=== PATIENT | male | born 1955 | race Caucasian/White ===

== ENCOUNTER → 2018-07-22 | Outpatient (CLI) | payer BC, OTHER ==
[2018-07-22 10:29] LABS: BASOPHILS % (AUTO) 1 % (0-10); EOSINOPHILS # (AUTO) 0.2 10^3/uL (0.0-0.3); EOSINOPHILS % (AUTO) 4 % (0-10); HEMATOCRIT 44 % (40-54); HEMOGLOBIN 14.7 G/DL (13.3-17.7); LYMPHOCYTES # (AUTO) 0.5 X 10^3 (1.0-4.0); LYMPHOCYTES % (AUTO) 10 % (12-44); MEAN CORPUSCULAR HEMOGLOBIN 29 PG (25-34); MEAN CORPUSCULAR HGB CONC 33 G/DL (32-36); MEAN CORPUSCULAR VOLUME 86 FL (80-99); MEAN PLATELET VOLUME 9.8 FL (7.4-10.4); MONOCYTES # (AUTO) 0.4 X 10^3 (0.0-1.0); MONOCYTES % (AUTO) 7 % (0-12); NEUTROPHILS # (AUTO) 4.1 X 10^3 (1.8-7.8); NEUTROPHILS % (AUTO) 79 % (42-75); PLATELET COUNT 209 10^3/uL (130-400); RED CELL DISTRIBUTION WIDTH 14.3 % (10.0-14.5); WHITE BLOOD COUNT 5.3 10^3/uL (4.3-11.0)
[2018-07-22 10:53] LABS: ALANINE AMINOTRANSFERASE 15 U/L (0-55); ALBUMIN 4.2 GM/DL (3.2-4.5); ALKALINE PHOSPHATASE 77 U/L (40-136); BILIRUBIN,TOTAL 1.1 MG/DL (0.1-1.0); BUN/CREATININE RATIO 17; CALCIUM 9.2 MG/DL (8.5-10.1); CARBON DIOXIDE 24 MMOL/L (21-32); CHLORIDE 110 MMOL/L (98-107); CHOLESTEROL 153 MG/DL (< 200); CREATININE SERUM 0.88 MG/DL (0.60-1.30); GFR ESTIMATED > 60; GLUCOSE 94 MG/DL (70-105); HDL CHOLESTEROL 33 MG/DL (40-60); POTASSIUM 3.9 MMOL/L (3.6-5.0); SODIUM 146 MMOL/L (135-145); TOTAL PROTEIN 6.1 GM/DL (6.4-8.2); TRIGLYCERIDES 57 MG/DL (<150); VLDL CHOLESTEROL 11 MG/DL (5-40)
== END ==
LOC: LAB 10:06
PROVIDERS: ATTEND Family Medicine
DX: Z00.00 Encounter for general adult medical examination without abnormal findings (principal); Z13.220 Encounter for screening for lipoid disorders
CPT/HCPCS: 36415; 80053; 80061; 85025

== ENCOUNTER 2018-09-18 10:40 | Inpatient (IN) | payer BC ==
[~2018-09-18] VITALS: Ht 172.7 cm; Wt 85.9 kg
--- OUTSIDE RECORDS SUMMARY | 2018-09-18 10:46 | XMS REPORT ---
Author Author DEVAN PRUITT Organization [facility] [place] [facility] Address [address] [place] [address] Care Team Providers Care Lap Regulator Name Role Phone DEVAN PRUITT Unavailable PROBLEMS Unknown Problems ALLERGIES No Information ENCOUNTERS Encounter Location Date Diagnosis [facility] [place] [facility] [address] [id number] Feb, [facility] [place] [employer] [facility] [address] [id number] Jan, [facility] [place] [employer] [facility] [id number] [place] [address] [phone] Jan, Acute diffuse otitis externa of both ears H60.313 ; Otitis externa in other diseases classified elsewhere, unspecified ear H62.40 and Superficial mycosis, unspecified B36.9 [facility] [place] [employer] [facility] [id number] [place] [address] [phone] Dec, Acute diffuse otitis externa of both ears H60.313 and Sinus congestion R09.81 [facility] [place] [employer] [facility] [place] [id number] [place] [address] [id number] Jun, Viral upper respiratory tract infection J06.9 ; Cough R05 and Elevated BP without diagnosis of hypertension R03.0 [facility] [id number] [place] [phone] May, [facility] [id number] [place] [phone] May, [facility] [id number] [place] [phone] May, [facility] [place] [employer] [facility] [id number] [place] [address] [phone] May, Elevated BP without diagnosis of hypertension R03.0 ; Cough R05 and Other fatigue R53.83 [facility] [address] [facility] [id number] [place] [phone] May, Acute non-recurrent frontal sinusitis J01.10 ; Bronchitis J40 and Shortness of breath R06.02 IMMUNIZATIONS No Known Immunizations SOCIAL HISTORY Never Assessed REASON FOR VISIT Blood pressure check PLAN OF CARE VITAL SIGNS Height 65 in 2018-02-09 Blood pressure systolic 166 mmHg 2018-02-09 Blood pressure diastolic 90 mmHg 2018-02-09 MEDICATIONS Unknown Medications RESULTS No Results PROCEDURES No Known procedures INSTRUCTIONS MEDICATIONS ADMINISTERED No Known Medications MEDICAL (GENERAL) HISTORY Type Description Date Surgical History No know Surgical history
--- OUTSIDE RECORDS SUMMARY | 2018-09-18 10:46 | XMS REPORT ---
Author Author DEVAN PRUITT Organization [facility] [place] [facility] Address [address] [place] [address] Care Team Providers Care Hairspring Setter Name Role Phone DEVAN PRUITT Unavailable PROBLEMS Unknown Problems ALLERGIES No Information ENCOUNTERS Encounter Location Date Diagnosis [facility] [place] [facility] [address] [id number] Feb, [facility] [place] [employer] [facility] [address] [id number] Jan, [facility] [place] [facility] [facility] [id number] [place] [address] [phone] Jan, Acute diffuse otitis externa of both ears H60.313 ; Otitis externa in other diseases classified elsewhere, unspecified ear H62.40 and Superficial mycosis, unspecified B36.9 [facility] [place] [employer] [facility] [id number] [place] [address] [phone] Dec, Acute diffuse otitis externa of both ears H60.313 and Sinus congestion R09.81 [facility] [place] [employer] [place] [id number] [place] [address] [phone] Jun, Viral upper respiratory tract infection J06.9 ; Cough R05 and Elevated BP without diagnosis of hypertension R03.0 [facility] [id number] [place] [phone] May, [facility] [id number] [place] [phone] May, [facility] [id number] [place] [phone] May, [facility] [place] [employer] [facility] [id number] [place] [address] [id number] 14 May, 2017 Elevated BP without diagnosis of hypertension R03.0 ; Cough R05 and Other fatigue R53.83 [facility] [address] [facility] [id number] [place] [id number] 07 May, 2017 Acute non-recurrent frontal sinusitis J01.10 ; Bronchitis J40 and Shortness of breath R06.02 IMMUNIZATIONS No Known Immunizations SOCIAL HISTORY Never Assessed REASON FOR VISIT Blood pressure check PLAN OF CARE VITAL SIGNS Height 65 in 2018-02-02 Blood pressure systolic 142 mmHg 2018-02-02 Blood pressure diastolic 78 mmHg 2018-02-02 MEDICATIONS Unknown Medications RESULTS No Results PROCEDURES No Known procedures INSTRUCTIONS MEDICATIONS ADMINISTERED No Known Medications MEDICAL (GENERAL) HISTORY Type Description Date Surgical History No know Surgical history
--- OUTSIDE RECORDS SUMMARY | 2018-09-18 10:46 | XMS REPORT ---
Author Author DEVAN PRUITT Organization [facility] [place] [employer] [facility] Address [address] [place] [address] Care Team Providers Care Community Association Manager Name Role Phone DEVAN PRUITT Unavailable PROBLEMS Unknown Problems ALLERGIES No Information ENCOUNTERS Encounter Location Date Diagnosis [facility] [id number] [phone] Mar, MRSA (methicillin resistant staph aureus) culture positive Z22.322 [facility]ITAL[facility] [address] [id number] [id number] Mar, Skin abscess L02.91 [facility]ITALO[facility] [address] [id number] [place] [phone] Feb, [facility] [address] [id number] [id number] Feb, [facility] [address] [id number] [place]IST[place] [id number] Feb, [facility] [address] [id number] [phone] Jan, [facility] [address] [facility] [id number] [place]ISTA[place] [phone] Jan, Acute diffuse otitis externa of both ears H60.313 ; Otitis externa in other diseases classified elsewhere, unspecified ear H62.40 and Superficial mycosis, unspecified B36.9 [facility] [address] [id number] [place]ISTA[place] [id number] Dec, Acute diffuse otitis externa of both ears H60.313 and Sinus congestion R09.81 [facility] [address] [id number] [place]ISTA[place] [id number] Jun, Viral upper respiratory tract infection J06.9 ; Cough R05 and Elevated BP without diagnosis of hypertension R03.0 [facility] [address]00565100[place] [address] May, [facility] [address]00565100[place] [address] May, [facility] [id number] [place] [phone] May, [facility] [id number] [place] [address] [id number] 14 May, 2017 Elevated BP without diagnosis of hypertension R03.0 ; Cough R05 and Other fatigue R53.83 [facility] [address]00565100[place] [id number] 07 May, 2017 Acute non-recurrent frontal sinusitis J01.10 ; Bronchitis J40 and Shortness of breath R06.02 IMMUNIZATIONS No Known Immunizations SOCIAL HISTORY Never Assessed REASON FOR VISIT medication change PLAN OF CARE VITAL SIGNS MEDICATIONS Medication Instructions Dosage Frequency Start Date End Date Duration Status Sulfamethoxazole-Trimethoprim 800-160 MG Orally Twice a day 1 tablet 12h Mar, 10 day(s) Active RESULTS No Results PROCEDURES No Known procedures INSTRUCTIONS MEDICATIONS ADMINISTERED No Known Medications MEDICAL (GENERAL) HISTORY Type Description Date Surgical History No know Surgical history
--- OUTSIDE RECORDS SUMMARY | 2018-09-18 10:46 | XMS REPORT ---
Author Author DEVAN PRUITT Organization [facility] Address [address] [place] [address] Care Team Providers Care Rn Palliative Care Name Role Phone DEVAN PRUITT Unavailable PROBLEMS Unknown Problems ALLERGIES No Information ENCOUNTERS Encounter Location Date Diagnosis [facility] [place] [facility] [id number] [place] [address] [phone] Feb, [facility] [address] [id number] Feb, [facility] [place] [facility] [id number] [place] [address] [phone] Feb, [facility] [place] [facility] [id number] [place] [address] [phone] Jan, [facility] [employer] [facility] [id number] [place] [address] [id number] Jan, Acute diffuse otitis externa of both ears H60.313 ; Otitis externa in other diseases classified elsewhere, unspecified ear H62.40 and Superficial mycosis, unspecified B36.9 [facility] [place] [facility] [id number] [place] [address] [id number] 05 Dec, 2017 Acute diffuse otitis externa of both ears H60.313 and Sinus congestion R09.81 [facility] [place] [employer] [facility] [id number] [place] [address] [phone] Jun, Viral upper respiratory tract infection J06.9 ; Cough R05 and Elevated BP without diagnosis of hypertension R03.0 [facility] [id number] [place] [phone] May, [facility] [id number] [place] [phone] May, [facility] [address] [facility] [id number] [place] [address] May, [facility] [address] [facility] [id number] [place] [id number] 14 May, 2017 Elevated BP without diagnosis of hypertension R03.0 ; Cough R05 and Other fatigue R53.83 [facility] [address] [facility] [id number] [place] [id number] 07 May, 2017 Acute non-recurrent frontal sinusitis J01.10 ; Bronchitis J40 and Shortness of breath R06.02 IMMUNIZATIONS No Known Immunizations SOCIAL HISTORY Never Assessed REASON FOR VISIT Blood pressure check [employer] PLAN OF CARE VITAL SIGNS Blood pressure systolic 138 mmHg 2018-03-02 Blood pressure diastolic 78 mmHg 2018-03-02 MEDICATIONS Unknown Medications RESULTS No Results PROCEDURES No Known procedures INSTRUCTIONS MEDICATIONS ADMINISTERED No Known Medications MEDICAL (GENERAL) HISTORY Type Description Date Surgical History No know Surgical history
--- OUTSIDE RECORDS SUMMARY | 2018-09-18 10:47 | XMS REPORT ---
Author Author WALT Anand [facility] Address [address] [place] [address] Care Team Providers Care Communications Intern Name Role Phone WALT Anand Unavailable PROBLEMS Unknown Problems ALLERGIES No Known Allergies ENCOUNTERS Encounter Location Date Diagnosis [facility] [address] [id number] Jun, Viral upper respiratory tract infection J06.9 ; Cough R05 and Elevated BP without diagnosis of hypertension R03.0 [facility] [place] [id number] [place] [phone] May, [facility] [place] [address] [phone] May, [facility] [place] [address] [phone] May, [facility] [id number] [place] [address] [id number] 14 May, 2017 Elevated BP without diagnosis of hypertension R03.0 ; Cough R05 and Other fatigue R53.83 [facility] [id number] [place] [address] [id number] 07 May, 2017 Acute non-recurrent frontal sinusitis J01.10 ; Bronchitis J40 and Shortness of breath R06.02 IMMUNIZATIONS No Known Immunizations SOCIAL HISTORY Never Assessed REASON FOR VISIT head and chest congestion-[facility] BODY SHOP MECHANIC/FRUIT AND VEGETABLE CLASSER PLAN OF CARE Activity Details Follow Up prn Reason: VITAL SIGNS Height 65 in 2017-06-09 Weight 185 lbs 2017-06-09 Temperature 98 degrees Fahrenheit 2017-06-09 Heart Rate 90 bpm 2017-06-09 Respiratory Rate 20 2017-06-09 BMI 30.78 kg/m2 2017-06-09 Blood pressure systolic 160 mmHg 2017-06-09 Blood pressure diastolic 90 mmHg 2017-06-09 MEDICATIONS Medication Instructions Dosage Frequency Start Date End Date Duration Status Mucinex 600 MG Orally every 12 hrs 1 tablet as needed 12h Jun, Jun, 14 days Active Dulera 100-5 MCG/ACT Inhalation Twice a day. Rinse mouth after use 2 puffs Jun, August, 30 days Active RESULTS No Results PROCEDURES No Known procedures INSTRUCTIONS MEDICATIONS ADMINISTERED No Known Medications
--- OUTSIDE RECORDS SUMMARY | 2018-09-18 10:47 | XMS REPORT ---
Author Author WALT Anand [facility] Address [address] [place] [address] Care Team Providers Care Woven Wood Shade Assembler Name Role Phone WALT Anand Unavailable PROBLEMS Unknown Problems ALLERGIES No Information ENCOUNTERS Encounter Location Date Diagnosis [facility] [id number] [place] [address] [phone] Jun, Viral upper respiratory tract infection J06.9 ; Cough R05 and Elevated BP without diagnosis of hypertension R03.0 [facility] [id number] [place] [phone] May, [facility] [address] [phone] May, [facility] [id number] [place] [phone] 16 May, 2017 [facility] [id number] [place] [address] [id number] 14 May, 2017 Elevated BP without diagnosis of hypertension R03.0 ; Cough R05 and Other fatigue R53.83 [facility] [id number] [place] [address] [id number] 07 May, 2017 Acute non-recurrent frontal sinusitis J01.10 ; Bronchitis J40 and Shortness of breath R06.02 IMMUNIZATIONS No Known Immunizations SOCIAL HISTORY Never Assessed REASON FOR VISIT B/P check PLAN OF CARE VITAL SIGNS Height 65 in 2017-05-25 Blood pressure systolic 138 mmHg 2017-05-25 Blood pressure diastolic 78 mmHg 2017-05-25 MEDICATIONS No Known Medications RESULTS No Results PROCEDURES No Known procedures INSTRUCTIONS MEDICATIONS ADMINISTERED No Known Medications
--- OUTSIDE RECORDS SUMMARY | 2018-09-18 10:47 | XMS REPORT ---
Author Author DEVAN PRUITT Organization [facility] [employer] Address [address] [place] [address] Care Team Providers Care Sprinkler Tender Name Role Phone DEVAN PRUITT Unavailable PROBLEMS Unknown Problems ALLERGIES No Known Allergies ENCOUNTERS Encounter Location Date Diagnosis [facility] [address] [id number] 05 Dec, 2017 Acute diffuse otitis externa of both ears H60.313 and Sinus congestion R09.81 [facility] [address] [id number] Jun, Viral upper respiratory tract infection J06.9 ; Cough R05 and Elevated BP without diagnosis of hypertension R03.0 [facility] [id number] [place] [phone] May, [facility] [address] [phone] May, [facility] [id number] [place] [phone] 16 May, 2017 [facility] [id number] [place] [address] [id number] 14 May, 2017 Elevated BP without diagnosis of hypertension R03.0 ; Cough R05 and Other fatigue R53.83 [facility] [id number] [place] [address] [id number] 07 May, 2017 Acute non-recurrent frontal sinusitis J01.10 ; Bronchitis J40 and Shortness of breath R06.02 IMMUNIZATIONS No Known Immunizations SOCIAL HISTORY Never Assessed REASON FOR VISIT sinus pressure/ear pain Chris WALTERS PLAN OF CARE Activity Details Follow Up if s/s not improving with PCP or in Clinic Reason: VITAL SIGNS Height 65 in 2017-12-08 Weight 200.2 lbs 2017-12-08 Temperature 97.7 degrees Fahrenheit 2017-12-08 Heart Rate 71 bpm 2017-12-08 Respiratory Rate 20 2017-12-08 BMI 33.31 kg/m2 2017-12-08 Blood pressure systolic 122 mmHg 2017-12-08 Blood pressure diastolic 66 mmHg 2017-12-08 MEDICATIONS Medication Instructions Dosage Frequency Start Date End Date Duration Status Flonase 50 MCG/ACT Nasally Once a day (twice per day for 2 weeks) 1 spray in each nostril Dec, 30 day(s) Active Ciprodex 0.3-0.1 % Otic Twice a day 4 drops into affected ear 12h Dec, 07 days Active RESULTS No Results PROCEDURES No Known procedures INSTRUCTIONS MEDICATIONS ADMINISTERED No Known Medications
--- OUTSIDE RECORDS SUMMARY | 2018-09-18 10:47 | XMS REPORT ---
Author Author WALT Anand [facility] Address [address] [place] [address] Care Team Providers Care Television Repair Teacher Name Role Phone WALT Anand Unavailable PROBLEMS Unknown Problems ALLERGIES No Known Allergies ENCOUNTERS Encounter Location Date Diagnosis [facility] [address] [id number] Jun, Viral upper respiratory tract infection J06.9 ; Cough R05 and Elevated BP without diagnosis of hypertension R03.0 [facility] [id number] [place] [phone] May, [facility] [address] [phone] May, [facility] [id number] [place] [phone] 16 May, 2017 [facility] [id number] [place] [address] [id number] 14 May, 2017 Elevated BP without diagnosis of hypertension R03.0 ; Cough R05 and Other fatigue R53.83 [facility] [id number] [place] [address] [id number] 07 May, 2017 Acute non-recurrent frontal sinusitis J01.10 ; Bronchitis J40 and Shortness of breath R06.02 IMMUNIZATIONS No Known Immunizations SOCIAL HISTORY Never Assessed REASON FOR VISIT sinus/chest congestion-Chris WALTERS PLAN OF CARE Activity Details Follow Up 1 Week or sooner if no improvement Reason: VITAL SIGNS Height 65 in 2017-05-12 Weight 182.6 lbs 2017-05-12 Temperature 100.0 degrees Fahrenheit 2017-05-12 Heart Rate 114 bpm 2017-05-12 Respiratory Rate 18 2017-05-12 Oximetry 90 % 2017-05-12 BMI 30.38 kg/m2 2017-05-12 Blood pressure systolic 150 mmHg 2017-05-12 Blood pressure diastolic 78 mmHg 2017-05-12 MEDICATIONS Medication Instructions Dosage Frequency Start Date End Date Duration Status Benzonatate 200 mg Orally Three times a day prn cough 1 capsule May, 10 days Active PredniSONE 20 mg Orally Once a day with food 3 tablets x 3 days, 2 tablets x 3 days, then 1 tab x 2 days 8 days Active Doxycycline Hyclate 100 mg Orally every 12 hrs 1 tablet 12h May, May, 10 days Active RESULTS No Results PROCEDURES Procedure Date Ordered Result Body Site MEASURE BLOOD OXYGEN LEVEL May 12, 2017 INSTRUCTIONS MEDICATIONS ADMINISTERED No Known Medications
--- OUTSIDE RECORDS SUMMARY | 2018-09-18 10:47 | XMS REPORT ---
Author Author WALT Anand [facility] Address [address] [place] [address] Care Team Providers Care Warehouse Examiner Name Role Phone WALT Anand Unavailable PROBLEMS Unknown Problems ALLERGIES No Information ENCOUNTERS Encounter Location Date Diagnosis [facility] [id number] [place] [address] [phone] Jun, Viral upper respiratory tract infection J06.9 ; Cough R05 and Elevated BP without diagnosis of hypertension R03.0 [facility] [id number] [place] [phone] May, [facility] [address] [phone] May, [facility] [id number] [place] [phone] 16 May, 2017 [facility] [id number] [place] [address] [id number] 14 May, 2017 Elevated BP without diagnosis of hypertension R03.0 ; Cough R05 and Other fatigue R53.83 [facility] [id number] [place] [address] [id number] 07 May, 2017 Acute non-recurrent frontal sinusitis J01.10 ; Bronchitis J40 and Shortness of breath R06.02 IMMUNIZATIONS No Known Immunizations SOCIAL HISTORY Never Assessed REASON FOR VISIT BP check PLAN OF CARE VITAL SIGNS Height 65 in 2017-05-26 Blood pressure systolic 126 mmHg 2017-05-26 Blood pressure diastolic 72 mmHg 2017-05-26 MEDICATIONS No Known Medications RESULTS No Results PROCEDURES No Known procedures INSTRUCTIONS MEDICATIONS ADMINISTERED No Known Medications
--- OUTSIDE RECORDS SUMMARY | 2018-09-18 10:47 | XMS REPORT ---
Author Author DEVAN PRUITT [facility] [place] [facility] Address [address] [place] [address] Care Team Providers Care Stamp Pad Maker Name Role Phone DEVAN PRUITT Unavailable PROBLEMS Unknown Problems ALLERGIES No Known Allergies ENCOUNTERS Encounter Location Date Diagnosis [facility] [address] [id number] Jan, Acute diffuse otitis externa of both ears H60.313 ; Otitis externa in other diseases classified elsewhere, unspecified ear H62.40 and Superficial mycosis, unspecified B36.9 [facility] [id number] [place] [id number] 05 Dec, 2017 Acute diffuse otitis externa of both ears H60.313 and Sinus congestion R09.81 [facility] [id number] [place] [id number] Jun, Viral upper respiratory tract infection J06.9 ; Cough R05 and Elevated BP without diagnosis of hypertension R03.0 [facility] [id number] [place] [phone] May, [facility] [id number] [place] [phone] May, [facility] [id number] [place] [phone] May, [facility] [id number] [place] [id number] 14 May, 2017 Elevated BP without diagnosis of hypertension R03.0 ; Cough R05 and Other fatigue R53.83 [facility] [place] [facility] [id number] [place] [id number] May, Acute non-recurrent frontal sinusitis J01.10 ; Bronchitis J40 and Shortness of breath R06.02 IMMUNIZATIONS No Known Immunizations SOCIAL HISTORY Never Assessed REASON FOR VISIT Ear painx2 days STep[facility]MA PLAN OF CARE Activity Details Follow Up prn if not improving Reason:ear pain VITAL SIGNS Height 65 in 2018-01-26 Weight 193.6 lbs 2018-01-26 Temperature 98.0 degrees Fahrenheit 2018-01-26 Heart Rate 64 bpm 2018-01-26 Respiratory Rate 20 2018-01-26 BMI 32.21 kg/m2 2018-01-26 Blood pressure systolic 134 mmHg 2018-01-26 Blood pressure diastolic 100 mmHg 2018-01-26 MEDICATIONS Medication Instructions Dosage Frequency Start Date End Date Duration Status Flonase 50 MCG/ACT Nasally Once a day (twice per day for 2 weeks) 1 spray in each nostril Dec, 30 day(s) Active Acetic Acid-HC Drops 2-1 % Otic Three times a day 3 drops into affected ear 8h Jan, 10 day(s) Active Clotrimazole 1 % Externally Twice a day 1 application to each ear 12h Jan, Feb, 10 days Active RESULTS No Results PROCEDURES No Known procedures INSTRUCTIONS MEDICATIONS ADMINISTERED No Known Medications MEDICAL (GENERAL) HISTORY Type Description Date Surgical History No know Surgical history
--- OUTSIDE RECORDS SUMMARY | 2018-09-18 10:47 | XMS REPORT ---
Author Author WALT Anand [facility] Address [address] [place] [address] Care Team Providers Care Maker Up Folding Name Role Phone WALT Anand Unavailable PROBLEMS Unknown Problems ALLERGIES No Information ENCOUNTERS Encounter Location Date Diagnosis [facility] [id number] [place] [id number] Jun, Viral upper respiratory tract infection J06.9 ; Cough R05 and Elevated BP without diagnosis of hypertension R03.0 [facility] [id number] [place] [phone] May, [facility] [address] [phone] May, [facility] [id number] [place] [phone] May, [facility] [id number] [place] [id number] 14 May, 2017 Elevated BP without diagnosis of hypertension R03.0 ; Cough R05 and Other fatigue R53.83 [facility] [id number] [place] [id number] 07 May, 2017 Acute non-recurrent frontal sinusitis J01.10 ; Bronchitis J40 and Shortness of breath R06.02 IMMUNIZATIONS No Known Immunizations SOCIAL HISTORY Never Assessed REASON FOR VISIT B/P check PLAN OF CARE VITAL SIGNS Height 65 in 2017-05-21 Blood pressure systolic 146 mmHg 2017-05-21 Blood pressure diastolic 76 mmHg 2017-05-21 MEDICATIONS No Known Medications RESULTS No Results PROCEDURES No Known procedures INSTRUCTIONS MEDICATIONS ADMINISTERED No Known Medications
[2018-09-18] MEDS ORDERED: RT-ALBUTEROL/IPRATROPIUM 3 ML (DUONEB) VIAL INH ONE (11:00)
[2018-09-18 11:08] LABS: BASOPHILS % (AUTO) 0 % (0-10); EOSINOPHILS # (AUTO) 0.1 10^3/uL (0.0-0.3); EOSINOPHILS % (AUTO) 1 % (0-10); HEMATOCRIT 46 % (40-54); HEMOGLOBIN 15.1 G/DL (13.3-17.7); LYMPHOCYTES # (AUTO) 0.5 X 10^3 (1.0-4.0); LYMPHOCYTES % (AUTO) 4 % (12-44); MEAN CORPUSCULAR HEMOGLOBIN 28 PG (25-34); MEAN CORPUSCULAR HGB CONC 33 G/DL (32-36); MEAN CORPUSCULAR VOLUME 85 FL (80-99); MEAN PLATELET VOLUME 10.2 FL (7.4-10.4); MONOCYTES # (AUTO) 0.3 X 10^3 (0.0-1.0); MONOCYTES % (AUTO) 3 % (0-12); NEUTROPHILS # (AUTO) 10.9 X 10^3 (1.8-7.8); NEUTROPHILS % (AUTO) 92 % (42-75); PLATELET COUNT 249 10^3/uL (130-400); RED CELL DISTRIBUTION WIDTH 14.6 % (10.0-14.5); WHITE BLOOD COUNT 11.8 10^3/uL (4.3-11.0)
--- NOTE | 2018-09-18 11:11 | ED Chest Pain ---
General Stated Complaint: DX WITH BRONCHITIS/CHEST TIGHTNESS Source: patient Exam Limitations: no limitations History of Present Illness Date Seen by Provider: Sep 18, 2018 Time Seen by Provider: 11:07 Initial Comments This 63-year-old white male presents with a complaint of chest tightness. The patient has had a recent bronchitis in the past week for which she is taking them steroids and inhalers. The patient denies history of cardiac disease. He's had a long-standing history of asthmatic bronchitis. The patient's chest tightness is not exertional in nature. The patient's bronchitis has been improving in the past week with the inhalers and steroids. The patient denies associated fever, chills, productive cough, pressure type chest pain or exertional chest pain. Patient is worried that he may be having a heart attack. Allergies and Home Medications Allergies Coded Allergies: No Known Drug Allergies (Unverified , 09/18/18) Patient Home Medication List Home Medication List Reviewed: Yes Review of Systems Review of Systems Constitutional: No chills, No fever, No malaise EENTM: No Blurred Vision, No Ear Pain Respiratory: See HPI, Cough, Shortness of Air (improving) Cardiovascular: See HPI, Chest Pain Gastrointestinal: See HPI Genitourinary: Denies Drainage, Denies Frequency Musculoskeletal: No back pain Skin: No change in color, No rash Psychiatric/Neurological: No Symptoms Reported Endocrine: No Symptoms Reported Hematologic/Lymphatic: No Symptoms Reported Past Uerajwy-Uaelzc-Zduwnw Hx Past Med/Social Hx: Reviewed Nursing Past Med/Soc Hx Patient Social History Recent Foreign Travel: No Contact w/Someone Who Travel: No Physical Exam Vital Signs Vital Signs - First Documented 09/18/18 10:50 Temp 96.8 Pulse 101 Resp 20 B/P (MAP) 147/101 (116) Pulse Ox 96 O2 Delivery Room Air Capillary Refill : Height, Weight, BMI Height: '" Weight: lbs. oz. kg; BMI Method: General Appearance: No Apparent Distress, WD/WN HEENT: TMs Normal, Normal ENT Inspection Neck: Normal Inspection, Non Tender Respiratory: Lungs Clear Cardiovascular: Regular Rate, Rhythm, No Murmur Gastrointestinal: Normal Bowel Sounds Extremity: Normal Capillary Refill, Normal Inspection, Normal Range of Motion, Non Tender Neurologic/Psychiatric: Oriented x3, No Motor/Sensory Deficits Skin: Normal Color, Warm/Dry Progress/Results/Core Measures Results/Orders Lab Results Laboratory Tests Test 09/18/18 11:00 Range/Units White Blood Count 11.8 H 4.3-11.0 10^3/uL Red Blood Count 5.35 4.35-5.85 10^6/uL Hemoglobin 15.1 13.3-17.7 G/DL Hematocrit 46 40-54 % Mean Corpuscular Volume 85 80-99 FL Mean Corpuscular Hemoglobin 28 25-34 PG Mean Corpuscular Hemoglobin Concent 33 32-36 G/DL Red Cell Distribution Width 14.6 H 10.0-14.5 % Platelet Count 249 130-400 10^3/uL Mean Platelet Volume 10.2 7.4-10.4 FL Neutrophils (%) (Auto) 92 H 42-75 % Lymphocytes (%) (Auto) 4 L 12-44 % Monocytes (%) (Auto) 3 0-12 % Eosinophils (%) (Auto) 1 0-10 % Basophils (%) (Auto) 0 0-10 % Neutrophils # (Auto) 10.9 H 1.8-7.8 X 10^3 Lymphocytes # (Auto) 0.5 L 1.0-4.0 X 10^3 Monocytes # (Auto) 0.3 0.0-1.0 X 10^3 Eosinophils # (Auto) 0.1 0.0-0.3 10^3/uL Basophils # (Auto) 0.0 0.0-0.1 10^3/uL Neutrophils % (Manual) 94 % Lymphocytes % (Manual) 4 % Monocytes % (Manual) 1 % Eosinophils % (Manual) 1 % Blood Morphology Comment NORMAL Sodium Level 142 135-145 MMOL/L Potassium Level 4.3 3.6-5.0 MMOL/L Chloride Level 108 H 98-107 MMOL/L Carbon Dioxide Level 22 21-32 MMOL/L Anion Gap 12 5-14 MMOL/L Blood Urea Nitrogen 19 H 7-18 MG/DL Creatinine 0.94 0.60-1.30 MG/DL Estimat Glomerular Filtration Rate > 60 BUN/Creatinine Ratio 20 Glucose Level 101 70-105 MG/DL Calcium Level 9.4 8.5-10.1 MG/DL Corrected Calcium 9.1 8.5-10.1 MG/DL Total Bilirubin 0.6 0.1-1.0 MG/DL Aspartate Amino Transf (AST/SGOT) 32 5-34 U/L Alanine Aminotransferase (ALT/SGPT) 31 0-55 U/L Alkaline Phosphatase 80 40-136 U/L Troponin I 0.057 H <0.028 NG/ML Total Protein 6.6 6.4-8.2 GM/DL Albumin 4.4 3.2-4.5 GM/DL My Orders Orders - CORTEZ BERNARD MD Ekg Tracing (09/18/18 10:52) Troponin I (09/18/18 10:52) Chest Pa/Lat (2 View) (09/18/18 10:52) Albuterol/Ipra Inhalation Soln (Duoneb I (09/18/18 11:00) Svn Small Volume Nebulizer (09/18/18 10:57) Cbc With Automated Diff (09/18/18 10:58) Comprehensive Metabolic Panel (09/18/18 10:58) Manual Differential (09/18/18 11:00) Protime With Inr (09/18/18 12:23) Medications Given in ED Current Medications Medications Dose Ordered Sig/Vasyl Route Start Time Stop Time Status Last Admin Dose Admin Albuterol/ Ipratropium 3 ml ONCE ONCE INH 09/18/18 11:00 09/18/18 11:01 DC 09/18/18 11:38 3 ML Vital Signs/I&O 09/18/18 09/18/18 10:50 11:38 Temp 96.8 Pulse 101 Resp 20 B/P (MAP) 147/101 (116) Pulse Ox 96 96 O2 Delivery Room Air Room Air Progress Progress Note : Time: 12:27 Progress Note Patient's EKG demonstrated left bundle branch block. Patient's troponin was minimally elevated. The patient remained pain-free in the emergency department. I called and visited with Dr. Jaime who recommended the patient be admitted for further evaluation. Dr. Moreno was kind enough to admit the patient. Departure Communication (Admissions) Time/Spoke to Admitting Phy: 12:29 Dr. Moreno. Time/Spoke to Consulting Phy: 12:29 Dr. Jaime. Impression Primary Impression: Chest pain Qualified Codes: R07.9 - Chest pain, unspecified Additional Impression: Elevated troponin Disposition: ADMITTED INPATIENT Condition: Improved Admissions Decision to Admit Reason: Admit from ER (General) Decision to Admit/Date: Sep 18, 2018 Time/Decision to Admit Time: 12:30 Departure-Patient Inst. Referrals: ABBY ISAAC MD (PCP/Family) Primary Care Physician CORTEZ BERNARD MD Sep 18, 2018 11:11
[2018-09-18 11:24] LABS: EOSINOPHILS % (MANUAL) 1 %; LYMPHOCYTES % (MANUAL) 4 %; MONOCYTES % (MANUAL) 1 %; NEUTROPHILS % (MANUAL) 94 %; RBC MORPH NORMAL
[2018-09-18 11:29] LABS: ALANINE AMINOTRANSFERASE 31 U/L (0-55); ALBUMIN 4.4 GM/DL (3.2-4.5); ALKALINE PHOSPHATASE 80 U/L (40-136); BILIRUBIN,TOTAL 0.6 MG/DL (0.1-1.0); BUN/CREATININE RATIO 20; CALCIUM 9.4 MG/DL (8.5-10.1); CARBON DIOXIDE 22 MMOL/L (21-32); CHLORIDE 108 MMOL/L (98-107); CREATININE SERUM 0.94 MG/DL (0.60-1.30); GFR ESTIMATED > 60; GLUCOSE 101 MG/DL (70-105); POTASSIUM 4.3 MMOL/L (3.6-5.0); SODIUM 142 MMOL/L (135-145); TOTAL PROTEIN 6.6 GM/DL (6.4-8.2)
--- NOTE | 2018-09-18 11:44 | Diagnostic Imaging Report ---
INDICATION: Shortness of air, chest pain FINDINGS: The heart size upper limits. There is vascular congestion. There is Larry Bs and probable pulmonary edema with small amounts of pleural fluid at the posterior sulci seen on the lateral radiograph. IMPRESSION: Findings suggest pulmonary edema with small pleural effusions. Upper limits heart size. No pneumothorax. Dictated by: Dictated on workstation # [id number]
[2018-09-18 12:34] LABS: PROTHROMBIN TIME PATIENT 13.1 SEC (12.2-14.7)
[2018-09-18 14:45] VITALS: BP 153/103
[2018-09-18] MEDS ORDERED: IBUPROFEN TABLET 200 MG TAB PO PRN (15:00)
[2018-09-18] MEDS ORDERED: fentaNYL INJECTION 100 MCG/2 ML AMP IVP PRN (15:00)
[2018-09-18] MEDS ORDERED: DOCUSATE SODIUM 100 MG (COLACE) CAP PO PRN (15:00)
[2018-09-18] MEDS ORDERED: HYDROcodone/APAP 5 MG/325 MG (LORTAB) TAB PO PRN (15:00)
[2018-09-18] MEDS ORDERED: ACETAMINOPHEN 500 MG TAB (TYLENOL) PO PRN (15:00)
[2018-09-18] MEDS ORDERED: ONDANSETRON 4 MG/2 ML (SDV) Z0FRAN IVP PRN (15:00)
[2018-09-18] MEDS ORDERED: CALCIUM CARBONATE 500 MG (TUMS) TAB.CHEW PO PRN (15:00)
[2018-09-18] MEDS ORDERED: MELATONIN 3 MG TABLET PO PRN (15:00)
[2018-09-18] MEDS ORDERED: LOPERAMIDE 2 MG (IMODIUM) TABLET PO PRN (15:00)
[2018-09-18] MEDS ORDERED: diphenhydrAMINE 25 MG TAB (BENADRYL) PO PRN (15:00)
[2018-09-18] MEDS ORDERED: NITROGLYCERIN 0.4 MG SL TABS BTL 25'S SL PRN (15:15)
--- NOTE | 2018-09-18 15:17 | Consultation-Cardiology ---
HPI-Cardiology Cardiology Consultation: Date of Consultation 09/18/18 Time Seen by a Provider: 14:50 Date of Admission 09/18/18 Attending Physician Adriana Moreno DO Admitting Physician Franco Benitez MD Consulting Physician BETTY HARPER MD, MA, FACP, FACC, [facility], CCDS Physician requesting consult: Dr Moreno HPI: Chief Complaint: Reason for consultation: Chest discomfort, shortness of breath, elevated troponin HPI: 63 yo man with one week of shortness of breath, mostly exertional. Also cough productive of small quantities of whitish sputum. Saw Dr Tianna Benitez, his pcp, on 09/16/18, and was placed on tapering prednisone and Symbicort inhaler. This resulted in some improvement of symptoms, but symptoms did not resolve and he decided to come in the ER. Also notes chest discomfort: onset a week ago, feeling of fullness in all of the chest, mild, sometimes brought with exertion and improved with rest, sometimes nonexertional, generally lasting 5 min, non-radiating, sometimes associated with shortness of breath, occurring several times a day, essentially unchanged over the last several days. No symptoms at the time of this exam. Review of Systems-Cardiology Review of Systems Constitutional: malaise; No weight loss, No weight gain Eyes: No vision change Ears/Nose/Throat: No ear discharge, No nasal drainage, No recent hearing loss Respiratory: As described under HPI Cardiovascular: As described under HPI Gastrointestinal: No diarrhea, No nausea, No vomiting Genitourinary: No dysuria, No hematuria, No urine frequency changes Musculoskeletal: No back pain, No joint pain Skin: No rash, No ulcerations Psychiatric/Neurological: No seizure, No focal weakness, No syncope Hematologic: No bleeding abnormalities DYD-Ygfgcb-Mzsiwe Hx Patient Social History Alcohol Use: Denies Use Recreational Drug Use: No Smoking Status: Former Smoker Recent Foreign Travel: No Recent Infectious Disease Expo: No Hospitalization with Isolation: Denies Immunizations Up To Date Tetanus Booster (TDap): Unknown Past Medical History PMH As described under Assessment. Family Medical History Family History: Alzheimer's disease 19 FATHER, Onset:Unknown Arthritis 19 FATHER, Onset:Unknown 19 MOTHER, Onset:Unknown G8 BROTHER, Onset:Unknown Asthma 19 FATHER, Onset:Unknown Cardiovascular disease 19 FATHER, Onset:60 years & older Cataracts 19 FATHER 19 MOTHER Deafness or hearing loss 19 FATHER Dementia 19 FATHER 19 MOTHER Diabetes mellitus Kidney disease 19 FATHER, Onset:60 years & older Myocardial infarction 19 FATHER, Onset:60 years & older Allergies and Home Medications Allergies Coded Allergies: No Known Drug Allergies (Unverified , 09/18/18) Patient Home Medication List Home Medication List Reviewed: Yes Physical Exam-Cardiology Physical Exam Vital Signs/I&O 09/18/18 09/18/18 09/18/18 09/18/18 10:50 11:38 12:43 13:09 Temp 96.8 Pulse 101 91 92 Resp 20 17 B/P (MAP) 147/101 (116) 151/98 (115) Pulse Ox 96 96 98 O2 Delivery Room Air Room Air Room Air 09/18/18 14:45 Pulse 90 Resp 13 B/P (MAP) 153/103 (120) Pulse Ox 95 O2 Delivery Room Air Capillary Refill : Less Than 3 Seconds Constitutional: AAO x 3, well-developed, well-nourished HEENT: EOMI, hearing is well preserved; No xanthelasmas are seen Neck: carotid pulses are 2 + bilaterally, with good upstrokes Respiratory: No accessory muscle use; lungs clear to percussion, other (good bi lat air entry) Cardiovascular: regular rate-rhythm, S1 and S2, systolic murmur (2/6 RAMANDEEP at card base) Gastrointestinal: No tender; soft; No guarding, No rebound; audible bowel sounds Extremities: No clubbing, No cyanosis, No significant edema Neurologic/Psychiatric: oriented x 3, grossly intact, power is 5/5 both on sides Skin: No rash on exposed areas, No ulcerations on exposed areas Data Review Labs Laboratory Tests 09/18/18 11:00: White Blood Count 11.8H, Red Blood Count 5.35, Hemoglobin 15.1, Hematocrit 46, Mean Corpuscular Volume 85, Mean Corpuscular Hemoglobin 28, Mean Corpuscular Hemoglobin Concent 33, Red Cell Distribution Width 14.6H, Platelet Count 249, Mean Platelet Volume 10.2, Neutrophils (%) (Auto) 92H, Lymphocytes (%) (Auto) 4L , Monocytes (%) (Auto) 3, Eosinophils (%) (Auto) 1, Basophils (%) (Auto) 0, Neutrophils # (Auto) 10.9H, Lymphocytes # (Auto) 0.5L, Monocytes # (Auto) 0.3, Eosinophils # (Auto) 0.1, Basophils # (Auto) 0.0, Neutrophils % (Manual) 94, Lymphocytes % (Manual) 4, Monocytes % (Manual) 1, Eosinophils % (Manual) 1, Blood Morphology Comment NORMAL, Prothrombin Time 13.1, INR Comment 1.0, Sodium Level 142, Potassium Level 4.3, Chloride Level 108H, Carbon Dioxide Level 22, A nion Gap 12, Blood Urea Nitrogen 19H, Creatinine 0.94, Estimat Glomerular Filtr ation Rate > 60, BUN/Creatinine Ratio 20, Glucose Level 101, Calcium Level 9.4, Corrected Calcium 9.1, Total Bilirubin 0.6, Aspartate Amino Transf (AST/SGOT) 32, Alanine Aminotransferase (ALT/SGPT) 31, Alkaline Phosphatase 80, Troponin I 0.057H, Total Protein 6.6, Albumin 4.4 Laboratory Tests 09/18/18 11:00 A/P-Cardiology Assessment/Admission Diagnosis Intermittent chest discomfort and minimal troponin elevation: consider ACS Abnormal ECG: LBBB (probably chronic) H/o tobacco use (quit in the ) Hypertension Frequent, isolated PACs and PVCs Discussion and Recomendations * Treat with beta-kayleigh, ASA, clopidogrel * Echo * Would need coronary w/u. Would decide on cath vs MPI based on his hosp course * Keep tele Clinical Quality Measures DVT/VTE Risk/Contraindication: Risk Factor Score Per Nursin RFS Level Per Nursing on Admit: 2=Moderate BETTY HARPER MD FACP FAC CCDS Sep 18, 2018 15:17
[2018-09-18] MEDS ORDERED: meTOprolol SUCCINATE 100 MG (TOPROL XL) TAB PO ONE (15:30)
[2018-09-18] MEDS ORDERED: PANTOPRAZOLE 40 MG (PROTONIX) TAB PO ONE (15:30)
[2018-09-18 16:00] VITALS: BP 140/79
[2018-09-18] MEDS ORDERED: CLOPIDOGREL 75 MG (PLAVIX) TABLET PO NR (16:16)
[2018-09-18] MEDS: RT-ALBUTEROL/IPRATROPIUM 3 ML (DUONEB) VIAL INH SCH ×2 (16:40→20:00)
[2018-09-18 19:00] VITALS: BP 137/77
[2018-09-18 20:00] VITALS: BP 151/66
[2018-09-18] MEDS: SENNA W/DOCUSATE (SENOKOT S) TABLET PO SCH (21:11)
[2018-09-19] VITALS: BP 95/64
[2018-09-19] MEDS: RT-ALBUTEROL/IPRATROPIUM 3 ML (DUONEB) VIAL INH SCH ×4 (03:12→20:14)
[2018-09-19 04:59] VITALS: BP 93/63
[2018-09-19] MEDS ORDERED: predniSONE 20 MG TAB PO SCH (07:00)
[2018-09-19 07:57] LABS: BASOPHILS % (AUTO) 0 % (0-10); EOSINOPHILS # (AUTO) 0.1 10^3/uL (0.0-0.3); EOSINOPHILS % (AUTO) 1 % (0-10); HEMATOCRIT 40 % (40-54); HEMOGLOBIN 13.3 G/DL (13.3-17.7); LYMPHOCYTES # (AUTO) 0.9 X 10^3 (1.0-4.0); LYMPHOCYTES % (AUTO) 11 % (12-44); MEAN CORPUSCULAR HEMOGLOBIN 29 PG (25-34); MEAN CORPUSCULAR HGB CONC 33 G/DL (32-36); MEAN CORPUSCULAR VOLUME 87 FL (80-99); MEAN PLATELET VOLUME 10.3 FL (7.4-10.4); MONOCYTES # (AUTO) 0.5 X 10^3 (0.0-1.0); MONOCYTES % (AUTO) 7 % (0-12); NEUTROPHILS # (AUTO) 6.7 X 10^3 (1.8-7.8); NEUTROPHILS % (AUTO) 82 % (42-75); PLATELET COUNT 214 10^3/uL (130-400); RED CELL DISTRIBUTION WIDTH 14.5 % (10.0-14.5); WHITE BLOOD COUNT 8.2 10^3/uL (4.3-11.0)
[2018-09-19 08:00] VITALS: BP 119/76
[2018-09-19 08:11] LABS: BAND NEUTROPHILS 0 %; BASOPHILS % (MANUAL) 0 %; EOSINOPHILS % (MANUAL) 2 %; LYMPHOCYTES % (MANUAL) 7 %; MONOCYTES % (MANUAL) 8 %; NEUTROPHILS % (MANUAL) 83 %
[2018-09-19 08:12] LABS: RBC MORPH NORMAL
[2018-09-19 08:15] LABS: ALANINE AMINOTRANSFERASE 24 U/L (0-55); ALBUMIN 3.6 GM/DL (3.2-4.5); ALKALINE PHOSPHATASE 65 U/L (40-136); BILIRUBIN,TOTAL 0.6 MG/DL (0.1-1.0); BUN/CREATININE RATIO 17; CALCIUM 8.4 MG/DL (8.5-10.1); CARBON DIOXIDE 23 MMOL/L (21-32); CHLORIDE 111 MMOL/L (98-107); CHOLESTEROL 131 MG/DL (< 200); GFR ESTIMATED > 60; GLUCOSE 87 MG/DL (70-105); HDL CHOLESTEROL 30 MG/DL (40-60); POTASSIUM 3.5 MMOL/L (3.6-5.0); SODIUM 145 MMOL/L (135-145); TOTAL PROTEIN 5.2 GM/DL (6.4-8.2); TRIGLYCERIDES 92 MG/DL (<150); VLDL CHOLESTEROL 18 MG/DL (5-40)
[2018-09-19] MEDS: CLOPIDOGREL 75 MG (PLAVIX) TABLET PO SCH (08:54)
[2018-09-19] MEDS: PANTOPRAZOLE 40 MG (PROTONIX) TAB PO SCH (08:54)
[2018-09-19] MEDS: ASPIRIN E.C. 81 MG (ECOTRIN) TAB PO SCH (08:54)
[2018-09-19] MEDS: SENNA W/DOCUSATE (SENOKOT S) TABLET PO SCH ×2 (08:55→20:25)
--- NOTE | 2018-09-19 09:17 | Progress Note-Cardiology ---
Cardiology SOAP Progress Note Subjective: No further chest discomfort No shortness of breath at rest Denies palp or syncope Objective: I&O/Vital Signs 09/19/18 09/19/18 09/19/18 09/19/18 00:00 00:00 01:00 03:12 Temp 98.1 Pulse 64 63 Resp 19 B/P (MAP) 95/64 (74) Pulse Ox 94 94 95 O2 Delivery Room Air Room Air Room Air 09/19/18 09/19/18 04:00 04:59 Pulse 76 Resp 18 B/P (MAP) 93/63 (73) Pulse Ox 95 91 O2 Delivery Room Air Room Air 09/19/18 00:00 Intake Total 650 ml Balance 650 ml Weight (Pounds): 188 Weight (Ounces): 8.0 Weight (Calculated Kilograms): 85.369606 Constitutional: AAO x 3, well-developed, well-nourished Respiratory: No accessory muscle use; lungs clear to percussion, other (good bilat air entry) Cardiovascular: regular rate-rhythm, S1 and S2, systolic murmur (2/6 RAMANDEEP at card base) Gastrointestional: No tender; soft; No guarding, No rebound; audible bowel sounds Extremities: No clubbing, No cyanosis, No significant edema Neurologic/Psychiatric: oriented x 3, grossly intact, power is 5/5 both on sides Skin: No rash on exposed areas, No ulcerations on exposed areas Results/Procedures: Labs Laboratory Tests 09/18/18 11:00: White Blood Count 11.8H, Red Blood Count 5.35, Hemoglobin 15.1, Hematocrit 46, Mean Corpuscular Volume 85, Mean Corpuscular Hemoglobin 28, Mean Corpuscular Hem oglobin Concent 33, Red Cell Distribution Width 14.6H, Platelet Count 249, Mean Platelet Volume 10.2, Neutrophils (%) (Auto) 92H, Lymphocytes (%) (Auto) 4L, Monocytes (%) (Auto) 3, Eosinophils (%) (Auto) 1, Basophils (%) (Auto) 0, Neutrophils # (Auto) 10.9H, Lymphocytes # (Auto) 0.5L, Monocytes # (Auto) 0.3, Eosinophils # (Auto) 0.1, Basophils # (Auto) 0.0, Neutrophils % (Manual) 94, Lymphocytes % (Manual) 4, Monocytes % (Manual) 1, Eosinophils % (Manual) 1, Blood Morphology Comment NORMAL, Prothrombin Time 13.1, INR Comment 1.0, Sodium Level 142, Potassium Level 4.3, Chloride Level 108H, Carbon Dioxide Level 22, Anion Gap 12, Blood Urea Nitrogen 19H, Creatinine 0.94, Estimat Glomerular Filtration Rate > 60, BUN/Creatinine Ratio 20, Glucose Level 101, Calcium Level 9.4, Corrected Calcium 9.1, Total Bilirubin 0.6, Aspartate Amino Transf (AST/ SGOT) 32, Alanine Aminotransferase (ALT/SGPT) 31, Alkaline Phosphatase 80, Troponin I 0.057H, Total Protein 6.6, Albumin 4.4 09/19/18 07:44: White Blood Count 8.2, Red Blood Count 4.66, Hemoglobin 13.3, Hematocrit 40, Mean Corpuscular Volume 87, Mean Corpuscular Hemoglobin 29, Mean Corpuscular Hemoglobin Concent 33, Red Cell Distribution Width 14.5, Platelet Count 214, Mean Platelet Volume 10.3, Neutrophils (%) (Auto) 82H, Lymphocytes (%) (Auto) 11L, Monocytes (%) (Auto) 7, Eosinophils (%) (Auto) 1, Basophils (%) (Auto) 0, Neutrophils # (Auto) 6.7, Lymphocytes # (Auto) 0.9L, Monocytes # (Auto) 0.5, Eosinophils # (Auto) 0.1, Basophils # (Auto) 0.0, Neutrophils % (Manual) 83, Lymphocytes % (Manual) 7, Monocytes % (Manual) 8, Eosinophils % (Manual) 2, Blood Morphology Comment NORMAL, Sodium Level 145, Potassium Level 3.5L, Chloride Level 111H, Carbon Dioxide Level 23, Anion Gap 11, Blood Urea Nitrogen 17, Creatinine 1.00, Estimat Glomerular Filtration Rate > 60, BUN/Creatinine Ratio 17, Glucose Level 87, Calcium Level 8.4L, Corrected Calcium 8.7, Total Bilirubin 0.6, Aspartate Amino Transf (AST/SGOT) 16, Alanine Aminotransferase (ALT/SGPT) 24, Alkaline Phosphatase 65, Troponin I 0.051H, Total Protein 5.2L, Albumin 3.6, Basophils % (Manual) 0, Band Neutrophils 0, Triglycerides Level 92, Cholesterol Level 131, LDL Cholesterol Direct 94, VLDL Cholesterol 18, HDL Cholesterol 30L Laboratory Tests 09/18/18 11:00 09/19/18 07:44 A/P: Assessment: Intermittent chest discomfort and minimal troponin elevation: consider ACS Dilated cardiomyopathy: LVEF approx 40% with global hypo (somewhat more at apex), mod MR on echo of 09/19/18 Abnormal ECG: LBBB (probably chronic) H/o tobacco use (quit in the ) Hypertension Frequent, isolated PACs and PVCs Plan: * Treat with beta-kayleigh, ASA, clopidogrel * Add MAGALYS-inhib * Given newly diagnosed cardiomyopathy and symptoms, we recommend card cath. I discussed the rationale, procedure, risks, benefits, potential complications and alternatives of card cath and possible ad hoc cor intervention with him in detail. He understands and provides informed consent. Will proceed tomorrow (or earlier, if needed) * Keep tele BETTY HARPER MD FACP FAC CCDS Sep 19, 2018 09:17
[2018-09-19] MEDS ORDERED: KCL 20 MEQ TAB (K-DUR) PO NR (09:55)
[2018-09-19] MEDS ORDERED: ENALAPRIL 2.5 MG (VASOTEC) TAB PO NR (09:55)
[2018-09-19] MEDS ORDERED: FUROSEMIDE 20 MG (LASIX) TAB PO NR (09:56)
[2018-09-19] MEDS: meTOprolol SUCCINATE 100 MG (TOPROL XL) TAB PO SCH (10:09)
[2018-09-19] MEDS: meTOproloL SUCCINATE 50 MG (TOPROL XL) TAB PO SCH (10:42)
[2018-09-19 12:00] VITALS: BP 120/70
[2018-09-19] MEDS ORDERED: BUDE10.2 INH (12:08)
[2018-09-19] MEDS ORDERED: PRED5TAB PO (12:08)
[2018-09-19] MEDS ORDERED: GUAI600T43 PO (12:09)
--- NOTE | 2018-09-19 12:09 | NUR ---
SPOKE WITH THE PATIENT ABOUT HIS MEDICATIONS. HE STATES HE WAS TAKING MUCINEX OTC THEN WENT TO HIS DR. BECAUSE THAT WASN'T WORKING AND WAS PRESCRIBED SYMBICORT AND A TAPER OF PREDNISONE. HE WAS STILL ON THOSE WHEN HE WAS ADMITTED BUT NORMALLY DOES NOT TAKE ANY MEDICATIONS.
[2018-09-19 16:00] VITALS: BP 124/76
--- NOTE | 2018-09-19 18:40 | History & Physical ---
History of Present Illness History of Present Illness Reason for visit/HPI 63 yo M admitted on 09/18/18 for dyspnea on exertion. He reported chest pain with coughing. He denies any radiating chest pain, diaphoresis. I have seen patient twice in the past month for illness/allergies. His most recent visit was 09/16/18 and I put him on steroids for bronchitis. He did report he did a little better the following day but was not completely better and since I told him on Wednesday09/16/18- we will need to evaluate his heart further after he finishes the steroids; He said he could not stop thinking about what state his heart is in since I mentioned it to him so this was a big factor in him going to the ER; he got worried. Dr. Jaime was consulted for cardiac workup. Date of Admission Sep 18, 2018 at 12:20 Date Seen by a Provider: Sep 19, 2018 Time Seen by a Provider: 18:30 I consulted on this patient on 09/19/18 18:30 Attending Physician Franco Isaac MD Admitting Physician Franco Isaac MD Consult Dr. Jaime Allergies and Home Medications Allergies Coded Allergies: No Known Drug Allergies (Unverified , 09/18/18) Home Medications Budesonide/Formoterol Fumarate 10.2 Gm Hfa.aer.ad, 2 PUFF INH BID, (Reported) Guaifenesin 600 Mg Tab.er.12h, 600 MG PO BID PRN for CONGESTION, (Reported) Prednisone 5 Mg Tablet, PO UD, (Reported) FILLED #21 09-16-18 TAKE 6 TABS DAY 1, 5 TABS DAY 2, 4 TABS DAY 3, 3 TABS DAY 4, 2 TABS DAY 5, 1 TAB DAY 6 Patient Home Medication List Home Medication List Reviewed: Yes Past Ihgqgwq-Yctwxl-Vxbvai Hx Patient Social History Alcohol Use: Denies Use Recreational Drug Use: No Smoking Status: Former Smoker Recent Foreign Travel: No Contact w/other who traveled: No Recent Hopitalizations: No Recent Infectious Disease Expo: No Immunizations Up To Date Tetanus Booster (TDap): Unknown Pediatric: Yes Seasonal Allergies Seasonal Allergies: No Surgeries Yes Orthopedic, Tonsillectomy Respiratory No Cardiovascular No Neurological No Genitourinary No Gastrointestinal No Musculoskeletal No Endocrine History of Endocrine Disorders: No HEENT History of HEENT Disorders: No Cancer No Psychosocial History of Psychiatric Problem: No Integumentary History of Skin or Integumenta: No Blood Transfusions History of Blood Disorders: No Family Medical History Family Hx: Alzheimer's disease 19 FATHER, Onset:Unknown Arthritis 19 FATHER, Onset:Unknown 19 MOTHER, Onset:Unknown G8 BROTHER, Onset:Unknown Asthma 19 FATHER, Onset:Unknown Cardiovascular disease 19 FATHER, Onset:60 years & older Cataracts 19 FATHER 19 MOTHER Deafness or hearing loss 19 FATHER Dementia 19 FATHER 19 MOTHER Diabetes mellitus Kidney disease 19 FATHER, Onset:60 years & older Myocardial infarction 19 FATHER, Onset:60 years & older Review of Systems Review of Systems General: No Chills, No Night Sweats HEENT: No Head Aches, No Visual Changes Pulmonary: Dyspnea, Cough Cardiovascular: Chest Pain (with coughing); No: Palpitations Gastrointestinal: No: Nausea, Vomiting, Abdominal Pain Genitourinary: No Dysuria, No Frequency Musculoskeletal: No: neck pain, shoulder pain Neurological: No: Weakness Physical Exam Vital Signs Vital Signs - First Documented 09/18/18 10:50 Temp 96.8 Pulse 101 Resp 20 B/P (MAP) 147/101 (116) Pulse Ox 96 O2 Delivery Room Air Capillary Refill : Less Than 3 Seconds Height, Weight, BMI Height: 5'8.00" Weight: 188lbs. 8.0oz. [id number]; 28.8 BMI Method:Stated General Appearance: No Apparent Distress, WD/WN Neck: Non Tender, Supple Respiratory: Chest Non Tender, Lungs Clear, Normal Breath Sounds, No Accessory Muscle Use, No Respiratory Distress Cardiovascular: Regular Rate, Rhythm, No Edema Gastrointestinal: Non Tender, Soft Back: Normal Inspection, No CVA Tenderness, No Vertebral Tenderness Extremity: Normal Capillary Refill, Non Tender, No Calf Tenderness Neurologic/Psychiatric: Alert, Oriented x3, Normal Mood/Affect Skin: Normal Color, Warm/Dry, Cool Assessment/Plan Assessment/Plan Admission Dx dyspnea on exertion. Admission Status: Observation Reason for Inpatient Admission: He will stay over a span of 2 midnights- once all information is gathered and likely found to have coronary artery disease requiring intervention- he would meet inpatient criteria. Assessment and Plan will be undergoing catherization 09/20/[address] Jaime for further evaluation. Echo from 09/19/18-- Dilated cardiomyopathy: LVEF approx 40% with global hypo (somewhat more at apex), mod MR -replacing potassium -starting medication for new CAD, heart failure findings. -monitoring chest pain Problems: (1) Chest pain Qualifiers: Qualified Codes: R07.9 - Chest pain, unspecified (2) Elevated troponin (3) Hypokalemia (4) Dyspnea on exertion (5) Dilated cardiomyopathy (6) Systolic congestive heart failure Qualifiers: Qualified Codes: I50.21 - Acute systolic (congestive) heart failure Clinical Quality Measures DVT/VTE Risk/Contraindication: Risk Factor Score Per Nursin RFS Level Per Nursing on Admit: 2=Moderate FRANCO ISAAC MD Sep 19, 2018 18:40
[2018-09-19 20:00] VITALS: BP 130/72
[2018-09-19] MEDS: ENALAPRIL 2.5 MG (VASOTEC) TAB PO SCH (20:25)
[2018-09-20] VITALS (7 sets, daily range): BP systolic 116–165; BP diastolic 68–93
[2018-09-20] MEDS: RT-ALBUTEROL/IPRATROPIUM 3 ML (DUONEB) VIAL INH SCH ×4 (03:27→20:56)
[2018-09-20] MEDS: PANTOPRAZOLE 40 MG (PROTONIX) TAB PO SCH (07:35)
[2018-09-20] MEDS: ASPIRIN E.C. 81 MG (ECOTRIN) TAB PO SCH (07:36)
[2018-09-20] MEDS: SENNA W/DOCUSATE (SENOKOT S) TABLET PO SCH ×2 (07:36→21:17)
[2018-09-20] MEDS: CLOPIDOGREL 75 MG (PLAVIX) TABLET PO SCH (07:36)
[2018-09-20] MEDS: meTOprolol SUCCINATE 100 MG (TOPROL XL) TAB PO SCH (07:36)
[2018-09-20] MEDS: meTOproloL SUCCINATE 50 MG (TOPROL XL) TAB PO SCH (07:36)
[2018-09-20] MEDS: ENALAPRIL 2.5 MG (VASOTEC) TAB PO SCH (07:36)
[2018-09-20] MEDS ORDERED: HEParin (CATH LAB) 2,000 ML IV ONE (08:07)
[2018-09-20] MEDS ORDERED: LIDOCAINE 1% INJ 20 ML 20 ML VIAL ONE (08:07)
[2018-09-20] MEDS: ALPRAZolam 0.25 MG (XANAX) TAB PO PRN ×2 (09:01→19:40)
--- NOTE | 2018-09-20 11:55 | NUR ---
Pt taken to label coder at this time by label coder staff. Will await pt return at this time.
[2018-09-20] MEDS ORDERED: fentaNYL INJECTION 100 MCG/2 ML AMP ONE (12:07)
[2018-09-20] MEDS ORDERED: MIDAZOLAM 5 MG/5 ML (VERSED) VIAL ONE (12:07)
[2018-09-20] MEDS ORDERED: NS IV 1000 ML 1,000 ML ONE (12:09)
[2018-09-20] MEDS: NS IV 1000 ML 1,000 ML IV SCH ×2 (12:35→22:45)
--- NOTE | 2018-09-20 12:38 | Cardiac Procedure Note-CS/ASA ---
Pre-Procedure Note Pre-Op Procedure Note H&P Reviewed The H&P was reviewed, patient examined and no changes noted. Date H&P Reviewed: Sep 20, 2018 Time H&P Reviewed: 12:38 Conscious Sedation Pre-Proced Time 12:38 ASA Score 3 For ASA 3 and 4: Consider anesthesia and medical clearance. Also, for patients with a history of failed moderate sedation consider anesthesia. Airway Lungs Heart ASA score ASA 1: a normal healthy patient ASA 2: a patient with a mild systemic disease (mid diabetes, controlled hypertension, obesity ASA 3: a patient with a severe systemic disease that limits activity (angina, COPD, prior Myocardial infarction) ASA 4: a patient with an incapacitating disease that is a constant threat to life (CHF, renal failure) ASA 5: a moribund patient not expected to survive 24 hrs. (ruptured aneurysm) ASA 6: a declared brain- patient whose organs are being harvested. For emergent operations, add the letter E after the classification Mallampati Classification Grade 2 Sedation Plan Analgesia, Amnesia, Plan communicated to team members, Discussed options with patient/fam, Discussed risks with patient/fam The patient is an appropriate candidate to undergo the planned procedure, sedation, and anesthesia. The patient immediately re-assessed prior to indication. BETTY HARPER MD FACP FAC CCDS Sep 20, 2018 12:38
[2018-09-20] MEDS ORDERED: HEParin 1000 UNIT/ML (10ML VIAL) FOR BOLUS ONE (12:50)
[2018-09-20] MEDS ORDERED: NITRO DRIP 25000 MCG/D5W 0 ML IV ONE (12:51)
[2018-09-20] MEDS ORDERED: EPTIFIBATIDE BOLUS 20 ML IV ONE (12:53)
[2018-09-20] MEDS ORDERED: ADENOSINE 3 MG/1 ML (ADENOSCAN) 30ML VIAL IV ONE (13:00)
[2018-09-20] MEDS ORDERED: CLOPIDOGREL 300 MG (PLAVIX) TABLET PO ONE (13:45)
[2018-09-20] MEDS ORDERED: ASPIRIN 81 MG CHEW (CHILDREN'S ASA) ONE (13:46)
[2018-09-20] MEDS ORDERED: NS IV 1000 ML 1,000 ML IV SCH (14:41)
[2018-09-20] MEDS ORDERED: PATIENT MAY USE OWN MEDS, ALL PO SCH (14:45)
[2018-09-20] MEDS ORDERED: KCL 20 MEQ TAB (K-DUR) PO NR (14:45)
--- NOTE | 2018-09-20 15:53 | CARDIAC CATHETERIZATION ---
DATE OF SERVICE: CARDIAC CATHETERIZATION AND CORONARY INTERVENTION The patient is a 63-year-old man with recently diagnosed congestive heart failure. Echocardiography has indicated cardiomyopathy. Cardiac catheterization was carried out today after having obtained an informed consent. Informed consent was also obtained for ad hoc coronary intervention, if needed. DESCRIPTION OF PROCEDURE: He was brought to the cardiac catheterization laboratory in a fasting state. Right groin was prepared and draped in the usual sterile fashion. Lidocaine 1% was used for local anesthesia. Modified Seldinger technique was used to advance a 6-Slovak sheath into the right femoral artery. We used a 6-Slovak JL4 catheter for left coronary angiography and a 6-Slovak JR4 catheter for right coronary angiography. A 6-Slovak pigtail catheter was used for left heart catheterization and left ventricular angiography. PERCUTANEOUS INTERVENTION TO THE RIGHT CORONARY ARTERY: Following completion of the diagnostic procedure, we carried out percutaneous intervention to the right coronary artery, which was exhibiting multiple 40% stenoses and a localized 80 to 90% stenosis in the distal right coronary artery prior to the origin of the posterior descending branch of right coronary artery. We used a 6-Slovak JL4 guide catheter with side holes and advanced a BMW wire across the lesion and the tip was placed in the posterior descending branch of the right coronary artery. We gave a double bolus of Integrilin during the interventional procedure and 6000 units intravenous heparin were also given. We advanced Xience Tracy 2.5 x 12 mm stent to the lesion. This was carefully positioned and the stent was deployed at 12 atmospheres. Subsequent angiography revealed 0% residual stenosis at the previous site of 80% to 90% stenosis in the distal right coronary artery. The posterior descending branch of the right coronary artery has localized 60% stenosis, which was not intervened on because the vessel is of a small caliber. FRACTIONAL FLOW RESERVE MEASUREMENT IN THE LEFT ANTERIOR DESCENDING ARTERY: Following completion of the percutaneous intervention of left anterior descending artery, we carried out fractional flow reserve measurement in the left anterior descending artery because of the left anterior descending artery was exhibiting multiple stenoses, including a 50 to 60% stenosis following the origin of a diagonal branch. This was associated with some haziness. We used a 6-Slovak JL4 guide catheter to engage the left coronary artery and advanced a pressure wire across the lesion. We gave Integrilin 140 mcg per kilogram per minute for 2 minutes. Fractional flow reserve was measured at 0.79, indicating hemodynamic significance of the mid left anterior descending artery lesion. PERCUTANEOUS INTERVENTION TO THE LEFT ANTERIOR DESCENDING ARTERY: Because of the fractional flow reserve was 0.79, the mid left anterior descending artery lesion was hemodynamically significant. We kept the pressure wire in position. We advanced Xience Tracy 2.5 x 15 mm stent. This was carefully positioned to cover the entire lesion in the mid left anterior descending artery following the origin of a diagonal branch. The proximal stent edge comes up to the ostium of the diagonal branch, but does not long-term it. We deployed the stent at 12 atmospheres. Subsequent angiography revealed 0% residual stenosis and flow throughout the vessel is normal. The diagonal branch of the left anterior descending artery exhibits moderate to moderately severe ostial stenosis, but this is a small caliber vessel and does not appear amenable to intervention. LEFT VENTRICULAR ANGIOGRAPHY: Left ventricular angiography was carried out in the right anterior oblique projection. Global left ventricular systolic function is impaired. There is global hypokinesis. Left ventricular ejection fraction is 30% to 35%. CORONARY ANGIOGRAPHY: Left main coronary artery exhibits 20% to 30% ostial and proximal stenosis. Left anterior descending artery has multiple 30 to 40% lesions. There appeared to be a 50 to 60% mid vessel lesion following the origin of a diagonal branch, which was hemodynamically significant (fractional flow reserve 0.79). This was stented with Xience Tracy 2.5 x 15 mm stent. The second diagonal branch of the left anterior descending artery has moderate to moderately severe ostial stenosis, but is of a small caliber and does not appear amenable to intervention. The left circumflex artery has a large obtuse marginal branch, which has multiple 50% stenoses in its proximal, mid and distal portions. The right coronary artery is dominant. It has multiple 40% stenoses in its proximal and mid portions and an 80 to 90% stenosis in the distal portion, which was successfully stented with Xience Tracy 2.5 x 12 mm stent. The posterior descending branch of the right coronary artery has approximately 60% stenosis that was not intervened on because of relatively small vessel caliber. CONCLUSIONS: 1. Multivessel coronary artery disease that is described in detail above. The most significant lesions were an 80% to 90% stenosis in the distal right coronary artery, which was successfully stented with Xience Tracy 2.5 x 12 mm stent. The left anterior descending artery had a mid vessel lesion, which was approximately 50 to 60% with fractional flow reserve of 0.79. This was successfully stented with Xience Tracy 2.5 x 15 mm stent. The rest of the coronary vessels have moderate diffuse disease. 2. Cardiomyopathy, probably ischemic, with global hypokinesis of left ventricle and left ventricular ejection fraction of 30 to 35%. 3. Elevated left ventricular end-diastolic pressure. DISCUSSION AND RECOMMENDATIONS: Treatment is with beta blockers, MAGALYS inhibitors, clopidogrel, and aspirin. Statin therapy will also be given. Medications will be given as tolerated. For treatment of congestive heart failure, treatment would be with furosemide and spironolactone. Job ID: [id number] DocumentID: [id number] Dictated Date: 09/20/2018 14:06:11 Enameler Date: 09/20/2018 15:52:40 Dictated By: BETTY HARPER MD, MA, FACP, FACC, MTDD
--- NOTE | 2018-09-20 17:20 | Progress Note (SOAP) ---
Subjective Subjective Date Seen by Provider: Sep 20, 2018 Time Seen by Provider: 17:16 63 yo M doing well. denies chest pain or trouble breathing. No nausea/vomiting. He was anxious about the cath but made it through. He is aware of dietary changes he needs to make. Co-worker present agrees and plans to improve their lunchtime meal choices. -pt looking forward to going home. Review of Systems General: No Chills, No Night Sweats HEENT: No Head Aches, No Visual Changes Pulmonary: Dyspnea, Cough Cardiovascular: Chest Pain (with coughing); No: Palpitations Gastrointestinal: No: Nausea, Vomiting, Abdominal Pain Genitourinary: No Dysuria, No Frequency Musculoskeletal: No: neck pain, shoulder pain Neurological: No: Weakness Objective Exam Vital Signs Vital Signs Date Time Temp Pulse Resp B/P (MAP) Pulse Ox O2 Delivery O2 Flow Rate FiO2 09/20/18 16:00 Room Air 09/20/18 16:00 59 15 116/79 (91) 97 Room Air 09/20/18 16:00 97.4 09/20/18 15:34 99 Room Air 09/20/18 12:00 Room Air 09/20/18 10:11 98 Room Air 09/20/18 09:00 65 10 133/93 (106) Room Air 09/20/18 08:53 Room Air 09/20/18 08:00 Room Air 09/20/18 07:00 81 09/20/18 03:52 Room Air 09/20/18 03:51 96.7 78 23 119/86 (97) 97 Room Air 09/20/18 03:27 97 Room Air 09/20/18 01:00 71 09/20/18 00:00 Room Air 09/20/18 00:00 97.5 73 22 120/68 (85) 95 Room Air 09/19/18 21:00 97 Room Air 09/19/18 20:14 92 Room Air 09/19/18 20:00 98.6 89 25 130/72 (91) 94 Room Air 09/19/18 20:00 Room Air 09/19/18 19:00 87 I & O 09/20/18 07:00 Intake Total 810 ml Output Total 1450 ml Balance -640 ml General Appearance: No Apparent Distress, WD/WN HEENT: TMs Normal, Normal ENT Inspection Neck: Non Tender, Supple Respiratory: Chest Non Tender, Lungs Clear, Normal Breath Sounds, No Accessory Muscle Use, No Respiratory Distress Cardiovascular: Regular Rate, Rhythm, No Edema Gastrointestinal: Non Tender, Soft Back: Normal Inspection, No CVA Tenderness, No Vertebral Tenderness Extremity: Normal Capillary Refill, Non Tender, No Calf Tenderness Neurologic/Psychiatric: Alert, Oriented x3, Normal Mood/Affect Skin: Normal Color, Warm/Dry, Cool Assessment/Plan Assessment/Plan Admission Dx dyspnea on exertion. Assessment and Plan 09/20/18- s/p cath with 2 stents placed in LAD, RCA. Doing well plan to discharge to home 09/21/18 Problems: (1) Chest pain Qualifiers: Qualified Codes: R07.9 - Chest pain, unspecified (2) Elevated troponin (3) Hypokalemia Assessment & Plan: replacing (4) Dyspnea on exertion (5) Dilated cardiomyopathy Assessment & Plan: patient does not drink etoh- (6) Systolic congestive heart failure Qualifiers: Qualified Codes: I50.21 - Acute systolic (congestive) heart failure Assessment & Plan: lasix spironolactone. (7) Multi-vessel coronary artery stenosis Assessment & Plan: s/p cath and 2 stents placed- in LAD, RCA. ASA, plavix, Entresto, statin Admission Dx dyspnea on exertion. Clinical Quality Measures Admission Status Admission Dx dyspnea on exertion. DVT/VTE Risk/Contraindication: Risk Factor Score Per Nursin RFS Level Per Nursing on Admit: 2=Moderate ABBY ISAAC MD Sep 20, 2018 17:20
[2018-09-20] MEDS: ATORVASTATIN 40 MG (LIPITOR) TABLET PO SCH (19:40)
--- NOTE | 2018-09-20 20:16 | Progress Note-Cardiology ---
Cardiology SOAP Progress Note Subjective: No cp Shortness of breath modestly improved No palp or syncope Objective: I&O/Vital Signs 09/20/18 09/20/18 09/20/18 09/20/18 08:53 09:00 10:11 12:00 Pulse 65 Resp 10 B/P (MAP) 133/93 (106) Pulse Ox 98 O2 Delivery Room Air Room Air Room Air Room Air 09/20/18 09/20/18 09/20/18 09/20/18 14:33 15:34 16:00 16:00 Temp 97.4 Pulse 64 59 Resp 15 B/P (MAP) 116/79 (91) Pulse Ox 99 97 O2 Delivery Room Air Room Air 09/20/18 09/20/18 09/20/18 16:00 17:00 18:00 Pulse 71 71 Resp 27 10 B/P (MAP) 130/84 (99) 126/83 (97) Pulse Ox 100 98 O2 Delivery Room Air Room Air Room Air 09/20/18 00:00 Intake Total 660 ml Output Total 950 ml Balance -290 ml Weight (Pounds): 188 Weight (Ounces): 8.0 Weight (Calculated Kilograms): 85.500624 Constitutional: AAO x 3, well-developed, well-nourished Respiratory: No accessory muscle use; lungs clear to percussion, other (good bilat air entry) Cardiovascular: regular rate-rhythm, S1 and S2, systolic murmur (2/6 RAMANDEEP at card base) Gastrointestional: No tender; soft; No guarding, No rebound; audible bowel sounds Extremities: No clubbing, No cyanosis, No significant edema Neurologic/Psychiatric: oriented x 3, grossly intact, power is 5/5 both on sides Skin: No rash on exposed areas, No ulcerations on exposed areas Results/Procedures: Labs Laboratory Tests 09/19/18 07:44 A/P: Assessment: Ischemic cardiomyopathy CAD. Card cath of 09/20/18: multivessel coronary artery disease. The most significant lesions were an 80% to 90% stenosis in the distal right coronary artery, which was successfully stented with Xience Tracy 2.5 x 12 mm stent. The left anterior descending artery had a mid vessel lesion, which was approximately 50 to 60% with fractional flow reserve of 0.79. This was successfully stented with Xience Tracy 2.5 x 15 mm stent. The rest of the coronary vessels have moderate diffuse disease. Global hypokinesis of left ventricle and left ventricular ejection fraction of 30 to 35%. Elevated left ventricular end-diastolic pressure Echo of 09/19/18: LVEF approx 40% with global hypo (somewhat more at apex), mod MR on echo of 09/19/18 Abnormal ECG: LBBB (probably chronic) H/o tobacco use (quit in the ) Hypertension Frequent, isolated PACs and PVCs Plan: * I had a long and detailed discussion with him and his son (a pharmacist) * Treatment of cm (in addition to cor intervention) would be with Entresto, bb, furosemide, and spironolactone * Statins because of CAD * ASA and clopidogrel because of cor stents * Consider Life Vest for now * Monitor labs BETTY HARPER MD FACP FAC CCDS Sep 20, 2018 20:16
[2018-09-20] MEDS: SACUBITRIL/VALSARTAN 24/26 MG (ENTRESTO) TABLET PO SCH (21:28)
--- NOTE | 2018-09-20 23:07 | NUR ---
CALLED DR. ISAAC TO REPORT THAT ALL EVENING PATIENT HAS BEEN COMPLAINING OF "WAVES OF SHORTNESS OF BREATH" THAT COMES AND GOES AND IT STARTED ON WEDNESDAY. VITAL SIGNS ARE WNL. PATIENT WAS GIVEN XANAX 0.25MG AND MELATONIN AND IS STILL COMPLAINING OF NOT BEING ABLE TO SLEEP. ALSO REPORTED THAT WHILE THIS RN HAD EXTENDED CONVERSATION WITH PATIENT HE DESCRIBED HIS 'S PASSING THAT HE WOULD STATE "HERE IT COMES AGAIN" BUT CONTINUE TALKING WITHOUT ANY INDICATION OF SOA. ALSO REPORTED THAT AFTER XANAX WAS ADMINISTERED THAT PATIENT WAS HEARD ON THE PHONE TALKING WITH FAMILY FOR QUITE AWHILE THIS EVENING. RECEIVED ORDER FOR AMBIEN 5MG PO. WENT TO ADMINISTER AMBIEN AND PATIENT WAS SLEEPING. WILL CONTINUE TO MONITOR.
[2018-09-20] MEDS ORDERED: ZOLPIDEM 5 MG (AMBIEN) TAB PO ONE (23:15)
[2018-09-21] VITALS: BP 134/78
[2018-09-21] MEDS: RT-ALBUTEROL/IPRATROPIUM 3 ML (DUONEB) VIAL INH SCH ×4 (02:54→20:45)
[2018-09-21 03:56] LABS: HEMOGLOBIN 13.5 G/DL (13.3-17.7); MEAN PLATELET VOLUME 10.1 FL (7.4-10.4); RED CELL DISTRIBUTION WIDTH 14.6 % (10.0-14.5); WHITE BLOOD COUNT 9.5 10^3/uL (4.3-11.0)
[2018-09-21] MEDS: ALPRAZolam 0.25 MG (XANAX) TAB PO PRN ×2 (04:18→22:24)
[2018-09-21 04:19] LABS: BUN/CREATININE RATIO 20; CARBON DIOXIDE 22 MMOL/L (21-32); CHLORIDE 107 MMOL/L (98-107); CREATININE SERUM 0.97 MG/DL (0.60-1.30); GFR ESTIMATED > 60; GLUCOSE 114 MG/DL (70-105); POTASSIUM 4.3 MMOL/L (3.6-5.0); SODIUM 140 MMOL/L (135-145)
[2018-09-21 04:41] VITALS: BP 117/68
[2018-09-21] MEDS: SACUBITRIL/VALSARTAN 24/26 MG (ENTRESTO) TABLET PO SCH ×2 (09:00→20:31)
[2018-09-21] MEDS: SPIRONOLACTONE 25 MG (ALDACTONE) TAB PO SCH (09:00)
[2018-09-21] MEDS: ASPIRIN E.C. 81 MG (ECOTRIN) TAB PO SCH (09:06)
[2018-09-21] MEDS: CLOPIDOGREL 75 MG (PLAVIX) TABLET PO SCH (09:07)
[2018-09-21] MEDS: meTOproloL SUCCINATE 50 MG (TOPROL XL) TAB PO SCH (09:07)
[2018-09-21] MEDS: PANTOPRAZOLE 40 MG (PROTONIX) TAB PO SCH (09:07)
[2018-09-21] MEDS: SENNA W/DOCUSATE (SENOKOT S) TABLET PO SCH ×2 (09:07→20:32)
[2018-09-21] MEDS: FUROSEMIDE 40 MG (LASIX) TAB PO SCH (09:07)
[2018-09-21] MEDS: NS IV 1000 ML 1,000 ML IV SCH ×2 (09:08→20:10)
--- NOTE | 2018-09-21 12:31 | Progress Note-Cardiology ---
Cardiology SOAP Progress Note Subjective: Gen malaise Mod exertional shortness of breath No cp No palp or syncope Objective: I&O/Vital Signs 09/21/18 09/21/18 09/21/18 09/21/18 01:00 02:54 04:00 04:00 Pulse 84 71 Resp 20 Pulse Ox 96 89 100 O2 Delivery Room Air Nasal Cannula Nasal Cannula O2 Flow Rate 2.00 2.00 09/21/18 09/21/18 09/21/18 09/21/18 04:41 07:00 08:00 08:00 Temp 97.3 Pulse 58 75 Resp 25 B/P (MAP) 117/68 (84) Pulse Ox 97 O2 Delivery Room Air Nasal Cannula O2 Flow Rate 2.00 09/21/18 09/21/18 09/21/18 09:00 12:00 12:00 Pulse 54 Resp 30 Pulse Ox 98 94 O2 Delivery Room Air Nasal Cannula Room Air O2 Flow Rate 2.00 09/21/18 00:00 Intake Total 1750 ml Output Total 800 ml Balance 950 ml Weight (Pounds): 189 Weight (Ounces): 6.0 Weight (Calculated Kilograms): 85.667333 Constitutional: AAO x 3, well-developed, well-nourished Respiratory: No accessory muscle use; lungs clear to percussion, other (good bilat air entry) Cardiovascular: regular rate-rhythm, S1 and S2, systolic murmur (2/6 RAMANDEEP at card base) Gastrointestional: No tender; soft; No guarding, No rebound; audible bowel sounds Extremities: No clubbing, No cyanosis, No significant edema Neurologic/Psychiatric: oriented x 3, grossly intact, power is 5/5 both on sides Skin: No rash on exposed areas, No ulcerations on exposed areas Results/Procedures: Labs Laboratory Tests 09/21/18 03:45: White Blood Count 9.5, Red Blood Count 4.77, Hemoglobin 13.5, Hematocrit 41, Mean Corpuscular Volume 86, Mean Corpuscular Hemoglobin 28, Mean Corpuscular Hemoglobin Concent 33, Red Cell Distribution Width 14.6H, Platelet Count 239, Mean Platelet Volume 10.1, Sodium Level 140, Potassium Level 4.3, Chloride Level 107, Carbon Dioxide Level 22, Anion Gap 11, Blood Urea Nitrogen 19H, Creatinine 0.97, Estimat Glomerular Filtration Rate > 60, BUN/Creatinine Ratio 20, Glucose Level 114H, Calcium Level 9.0 Laboratory Tests 09/21/18 03:45 A/P: Assessment: Ischemic cardiomyopathy CAD. Card cath of 09/20/18: multivessel coronary artery disease. The most significant lesions were an 80% to 90% stenosis in the distal right coronary artery, which was successfully stented with Xience Tracy 2.5 x 12 mm stent. The left anterior descending artery had a mid vessel lesion, which was approxima tely 50 to 60% with fractional flow reserve of 0.79. This was successfully stented with Xience Tracy 2.5 x 15 mm stent. The rest of the coronary vessels have moderate diffuse disease. Global hypokinesis of left ventricle and left ventricular ejection fraction of 30 to 35%. Elevated left ventricular end- diastolic pressure Echo of 09/19/18: LVEF approx 40% with global hypo (somewhat more at apex), mod MR on echo of 09/19/18 Abnormal ECG: LBBB (probably chronic) H/o tobacco use (quit in the ) Hypertension Frequent, isolated PACs and PVCs Plan: * I had a long and detailed discussion with him agin * Treatment of ischemic cardiomyopathy (in addition to cor intervention) is with Entresto, bb, furosemide, and spironolactone * Statins because of CAD * ASA and clopidogrel because of cor stents * Consider Life Vest for now. He is considering * Monitor labs BETTY HARPER MD FACP [facility] Sep 21, 2018 12:31
[2018-09-21 16:00] VITALS: BP 96/74
--- NOTE | 2018-09-21 16:38 | NUR ---
Report called to [facility] on 4th floor who will assume pt care once pt arrives to new room 423. Personal belongings packed with pt and family at bedside at this time. Pt to be transported via wheelchair at this time by NT.
--- NOTE | 2018-09-21 17:18 | Progress Note (SOAP) ---
Subjective Subjective Date Seen by Provider: Sep 21, 2018 Time Seen by Provider: 09:00 63 yo M doing well. denies new chest pain But does have dyspnea and then panics and has trouble breathing. Xanax helps a little bit. Review of Systems General: No Chills, No Night Sweats HEENT: No Head Aches, No Visual Changes Pulmonary: Dyspnea, Cough Cardiovascular: Chest Pain (with coughing); No: Palpitations Gastrointestinal: No: Nausea, Vomiting, Abdominal Pain Genitourinary: No Dysuria, No Frequency Musculoskeletal: No: neck pain, shoulder pain Neurological: No: Weakness Objective Exam Vital Signs Vital Signs Date Time Temp Pulse Resp B/P (MAP) Pulse Ox O2 Delivery O2 Flow Rate FiO2 09/21/18 16:00 Room Air 09/21/18 16:00 98.2 74 12 96/74 (81) 100 09/21/18 15:40 Room Air 09/21/18 12:00 98.0 09/21/18 12:00 Room Air 09/21/18 12:00 54 30 94 Nasal Cannula 2.00 09/21/18 09:05 97 Room Air 09/21/18 09:00 98 Room Air 09/21/18 08:00 75 25 97 Nasal Cannula 2.00 09/21/18 08:00 Room Air 09/21/18 07:00 58 09/21/18 04:41 97.3 117/68 (84) 09/21/18 04:00 100 Nasal Cannula 2.00 09/21/18 04:00 71 20 89 Nasal Cannula 2.00 09/21/18 02:54 96 Room Air 09/21/18 01:00 84 09/21/18 00:00 98 Nasal Cannula 2.00 09/21/18 00:00 65 16 96 Nasal Cannula 2.00 09/21/18 00:00 97.8 68 134/78 (96) 09/20/18 23:00 57 20 97 Room Air 09/20/18 21:00 98 Room Air 09/20/18 20:57 100 Room Air 09/20/18 20:00 Room Air 09/20/18 20:00 98.3 73 10 165/84 (111) 97 Room Air 09/20/18 19:00 64 09/20/18 18:00 71 10 126/83 (97) 98 Room Air I & O 09/21/18 07:00 Intake Total 3250 ml Output Total 1400 ml Balance 1850 ml General Appearance: No Apparent Distress, WD/WN HEENT: TMs Normal, Normal ENT Inspection Neck: Non Tender, Supple Respiratory: Chest Non Tender, Lungs Clear, Normal Breath Sounds, No Accessory Muscle Use, No Respiratory Distress Cardiovascular: Regular Rate, Rhythm, No Edema Gastrointestinal: Non Tender, Soft Back: Normal Inspection, No CVA Tenderness, No Vertebral Tenderness Extremity: Normal Capillary Refill, Non Tender, No Calf Tenderness Neurologic/Psychiatric: Alert, Oriented x3, Normal Mood/Affect Skin: Normal Color, Warm/Dry, Cool Results Lab Laboratory Tests 09/21/18 03:45: White Blood Count 9.5, Red Blood Count 4.77, Hemoglobin 13.5, Hematocrit 41, Mean Corpuscular Volume 86, Mean Corpuscular Hemoglobin 28, Mean Corpuscular Hemoglobin Concent 33, Red Cell Distribution Width 14.6H, Platelet Count 239, Mean Platelet Volume 10.1, Sodium Level 140, Potassium Level 4.3, Chloride Level 107, Carbon Dioxide Level 22, Anion Gap 11, Blood Urea Nitrogen 19H, Creatinine 0.97, Estimat Glomerular Filtration Rate > 60, BUN/Creatinine Ratio 20, Glucose Level 114H, Calcium Level 9.0 Assessment/Plan Assessment/Plan Admission Dx dyspnea on exertion. Assessment and Plan 09/20/18 RCA, LAD stents placed in both. CAD care- BB, entresto, statin 09/21/18- Potassium normal. Monitoring lytes. Monitor vitals as his blood pressure has been a little lower than his normal -which may contribute to his discomfort (weakness/fatigue). Changed to inpatient status. Transfer to 4th floor. He has been on 2L oxygen at nighttime likely in part to atelectasis and xanax. Will monitor respiratory status. Possibly discharge to home tomorrow. Problems: (1) Chest pain Qualifiers: Qualified Codes: R07.9 - Chest pain, unspecified (2) Elevated troponin (3) Hypokalemia Assessment & Plan: replacing (4) Dyspnea on exertion (5) Dilated cardiomyopathy Assessment & Plan: patient does not drink etoh- (6) Systolic congestive heart failure Qualifiers: Qualified Codes: I50.21 - Acute systolic (congestive) heart failure Assessment & Plan: lasix spironolactone. (7) Multi-vessel coronary artery stenosis Assessment & Plan: s/p cath and 2 stents placed- in LAD, RCA. ASA, plavix, Entresto, statin Admission Dx dyspnea on exertion. Clinical Quality Measures Admission Status Admission Dx dyspnea on exertion. DVT/VTE Risk/Contraindication: Risk Factor Score Per Nursin RFS Level Per Nursing on Admit: 2=Moderate ABBY ISAAC MD Sep 21, 2018 17:18
--- NOTE | 2018-09-21 18:00 | NUR ---
PT ARRIVED TO FLOOR WITH FAMILY AT SIDE. REQUESTING SHOWER. DENIES ANY COMPLAINTS AT THIS TIME. RIGHT CATH SITE PURPLE/BRUISED AREA IS DRY AND SOFT WITH DRESSING INTACT. VSS. PT ABLE TO MAKE NEEDS KNOWN. CALL LIGHT WITHIN REACH.
[2018-09-21 18:03] VITALS: BP 121/63
--- NOTE | 2018-09-21 20:10 | NUR ---
report given to Gloria CARRASQUILLO.
[2018-09-21 20:28] VITALS: BP 99/62
[2018-09-21] MEDS: ATORVASTATIN 40 MG (LIPITOR) TABLET PO SCH (20:31)
[2018-09-21 23:37] VITALS: BP 118/67
[2018-09-22] MEDS: RT-ALBUTEROL/IPRATROPIUM 3 ML (DUONEB) VIAL INH SCH ×3 (03:01→15:20)
[2018-09-22 03:49] VITALS: BP 121/68
[2018-09-22] MEDS: NS IV 1000 ML 1,000 ML IV SCH ×2 (05:07→15:17)
[2018-09-22 07:34] VITALS: BP 110/55
[2018-09-22] MEDS ORDERED: ALPR0.254 PO (08:13)
--- NOTE | 2018-09-22 08:15 | Discharge Inst-Cardiology ---
Discharge Inst-Cardiac Discharge Medications New, Converted or Re-Newed RX: Other (on chart and sent to pharmacy) Patient Instructions Patient Instructions: follow cardiology post-cath instructions. Follow up with Dr. Jaime. [facility] to [facility] For: new concerns chest pain Activity & Diet Discharge Diet: Cardiac Diet Activity as Tolerated: Yes Orders-Post D/C & Referrals Pneu Vac Indicated: Yes ABBY ISAAC MD Sep 22, 2018 08:15
[2018-09-22] MEDS: SPIRONOLACTONE 25 MG (ALDACTONE) TAB PO SCH (08:40)
[2018-09-22] MEDS: PANTOPRAZOLE 40 MG (PROTONIX) TAB PO SCH (08:40)
[2018-09-22] MEDS: FUROSEMIDE 40 MG (LASIX) TAB PO SCH (08:40)
[2018-09-22] MEDS: ASPIRIN E.C. 81 MG (ECOTRIN) TAB PO SCH (08:40)
[2018-09-22] MEDS: SENNA W/DOCUSATE (SENOKOT S) TABLET PO SCH ×3 (08:40→19:39)
[2018-09-22] MEDS: meTOproloL SUCCINATE 50 MG (TOPROL XL) TAB PO SCH (08:40)
[2018-09-22] MEDS: CLOPIDOGREL 75 MG (PLAVIX) TABLET PO SCH (08:40)
[2018-09-22] MEDS: SACUBITRIL/VALSARTAN 24/26 MG (ENTRESTO) TABLET PO SCH ×2 (08:40→19:37)
[2018-09-22] MEDS ORDERED: SACU1TAB PO (09:43)
[2018-09-22] MEDS ORDERED: ATOR40TA PO (09:43)
[2018-09-22] MEDS ORDERED: ASPI-983 PO (09:43)
[2018-09-22] MEDS ORDERED: METO-370 PO (09:43)
[2018-09-22] MEDS ORDERED: SPIR25TA5 PO (09:43)
[2018-09-22] MEDS ORDERED: CLOP75TA28 PO (09:43)
[2018-09-22] MEDS ORDERED: FURO40TA4 PO (09:54)
[2018-09-22 11:46] VITALS: BP 117/59
--- NOTE | 2018-09-22 11:49 | Progress Note-Cardiology ---
Cardiology SOAP Progress Note Subjective: Sitting up in a chair at the bedside. Wants to go home. No c/o CP, palpitations, syncope, near syncope or dyspnea. Objective: I&O/Vital Signs 09/22/18 09/22/18 09/22/18 09/22/18 07:00 07:34 08:00 09:00 Temp 98.8 Pulse 79 74 Resp 18 B/P (MAP) 110/55 (73) Pulse Ox 93 O2 Delivery Room Air Room Air Room Air 09/22/18 09/22/18 09/22/18 09/22/18 11:46 12:00 12:22 15:20 Temp 99.0 Pulse 70 75 Resp 18 B/P (MAP) 117/59 (78) Pulse Ox 97 94 O2 Delivery Room Air Room Air Room Air 09/22/18 09/22/18 16:00 16:00 Temp 99.6 Pulse 80 Resp 20 B/P (MAP) 123/72 (89) Pulse Ox 97 O2 Delivery Room Air Room Air 09/22/18 00:00 Intake Total 800 ml Output Total 900 ml Balance -100 ml Weight (Pounds): 189 Weight (Ounces): 6.0 Weight (Calculated Kilograms): 85.684447 Constitutional: AAO x 3, well-developed, well-nourished Respiratory: No accessory muscle use; lungs clear to percussion, other (good bilat air entry) Cardiovascular: regular rate-rhythm, S1 and S2, systolic murmur (2/6 RAMANDEEP at card base) Gastrointestional: No tender; soft; No guarding, No rebound; audible bowel sounds Extremities: No clubbing, No cyanosis, No significant edema Neurologic/Psychiatric: oriented x 3, grossly intact, power is 5/5 both on sides Skin: No rash on exposed areas, No ulcerations on exposed areas A/P: Assessment: Ischemic cardiomyopathy and small, acute NSTEMI CAD. Card cath of 09/20/18: multivessel coronary artery disease. The most sign ificant lesions were an 80% to 90% stenosis in the distal right coronary artery, which was successfully stented with Xience Tracy 2.5 x 12 mm stent. The left anterior descending artery had a mid vessel lesion, which was approximately 50 to 60% with fractional flow reserve of 0.79. This was successfully stented with Xience Tracy 2.5 x 15 mm stent. The rest of the coronary vessels have moderate diffuse disease. Global hypokinesis of left ventricle and left ventricular ejection fraction of 30 to 35%. Elevated left ventricular end-diastolic pressure Echo of 09/19/18: LVEF approx 40% with global hypo (somewhat more at apex), mod MR on echo of 09/19/18 Abnormal ECG: LBBB (probably chronic) H/o tobacco use (quit in the ) Hypertension Frequent, isolated PACs and PVCs Plan: * Dr. Jaime has had a long and detailed discussion with him; I have also answered several questions at length * Continue current treatment of ischemic cardiomyopathy (in addition to cor intervention) is with Entresto, bb, furosemide, and spironolactone * Continue statins d/t CAD * ASA and clopidogrel because of cor stents * Life Vest has been advised, had a lengthy discussion with him regarding Life Vest, re-affirmed information that has already been discussed with him by Dr. Jaime. He is agreeable. We will make arrangements. * Advised he not be discharged until Life Vest has been applied - he is agreeable - I have also spoken with nursing * Close f/u as out pt * Monitor labs Physician Assessment Physician Assessment No cp Shortness of breath and palp improved No syncope Wishes to go home Lungs: clear Cor: reg Ext: no c/c/e A&R * As documented in our note above that I updated (italics) and as noted below * Life Vest advised. Papers signed * Continue current meds * Close outpt f/u advised NICHOLAS PARADA SUPPORT GROUP MANAGER Sep 22, 2018 11:48 BETTY JAIME MD FACP FAC CCDS Sep 22, 2018 18:42
[2018-09-22 16:00] VITALS: BP 123/72
[2018-09-22 19:20] VITALS: BP 123/72
[2018-09-22] MEDS: ATORVASTATIN 40 MG (LIPITOR) TABLET PO SCH (19:37)
--- NOTE | 2018-09-22 20:10 | NUR ---
life vest sales development representative here gave instructions, discharge instruction given, son stated will take care of his med all new meds and make sure patient gets estresto, and will get samples for estresto from dr andino f/u appointment, night meds administered before discharge , tele and iv out
--- NOTE | 2018-09-23 09:12 | Discharge Summary ---
Diagnosis/Chief Complaint Date of Admission Sep 20, 2018 at 15:06 Date of Discharge Sep 22, 2018 at 20:13 Reason Hospital Visit 63 yo M admitted on 09/18/18 for dyspnea on exertion. He reported chest pain with coughing. He denies any radiating chest pain, diaphoresis. I have seen patient twice in the past month for illness/allergies. His most recent visit was 09/16/18 and I put him on steroids for bronchitis. He did report he did a little better the following day but was not completely better and since I told him on Wednesday09/16/18- we will need to evaluate his heart further after he finishes the steroids; He said he could not stop thinking about what state his heart is in since I mentioned it to him so this was a big factor in him going to the ER; he got worried. Dr. Jaime was consulted for cardiac workup. Discharge Summary Hospital Course Labs Laboratory Tests 09/21/18 03:45: Red Cell Distribution Width 14.6H, Blood Urea Nitrogen 19H, Glucose Level 114H Procedures None. Discharge Physical Examination Allergies: Coded Allergies: No Known Drug Allergies (Unverified , 09/18/18) Vitals & I&Os Vital Signs Date Time Temp Pulse Resp B/P (MAP) Pulse Ox O2 Delivery O2 Flow Rate FiO2 09/22/18 20:16 78 09/22/18 19:20 20 123/72 97 Room Air 2.00 09/22/18 16:00 99.6 Discharge Home Medications Reviewed and agree with Discharge Medication list on patient's Discharge Instruction sheet Instructions to Patient/Family Please see electronic discharge instructions given to patient. Clinical Quality Measures DVT/VTE Risk/Contraindication: Risk Factor Score Per Nursin RFS Level Per Nursing on Admit: 2=Moderate ABBY ISAAC MD Sep 23, 2018 09:12
== END 2018-09-22 20:13 | disposition home or self-care (01) | DRG 246 ==
LOC: EDUNIT# 10:40 → ER 10:42 → ICU 12:20 → OBSVTOIN 09-20 15:06 → 4TH 09-21 16:58
PROVIDERS: ADMIT Internal Medicine; ATTEND Internal Medicine
PROC: 027135Z Dilation of Coronary Artery, Two Arteries with Two Drug-eluting Intraluminal Devices, Percutaneous Approach (ICD-10-PCS; principal; 2018-09-20)
PROC: 4A023N7 Measurement of Cardiac Sampling and Pressure, Left Heart, Percutaneous Approach (ICD-10-PCS; 2018-09-20)
PROC: B2111ZZ Fluoroscopy of Multiple Coronary Arteries using Low Osmolar Contrast (ICD-10-PCS; 2018-09-20)
PROC: B2151ZZ Fluoroscopy of Left Heart using Low Osmolar Contrast (ICD-10-PCS; 2018-09-20)
DX: I21.4 Non-ST elevation (NSTEMI) myocardial infarction (principal); I25.10 Atherosclerotic heart disease of native coronary artery without angina pectoris; I25.5 Ischemic cardiomyopathy; I11.0 Hypertensive heart disease with heart failure; I50.21 Acute systolic (congestive) heart failure; J98.11 Atelectasis; I42.0 Dilated cardiomyopathy; I34.0 Nonrheumatic mitral (valve) insufficiency; E87.6 Hypokalemia; I44.7 Left bundle-branch block, unspecified; I49.1 Atrial premature depolarization; I49.3 Ventricular premature depolarization; J45.909 Unspecified asthma, uncomplicated; Z87.891 Personal history of nicotine dependence
CPT/HCPCS: 36415; 71046; 80048; 80053; 80061; 84484; 85007; 85027; 85610; 93005; 93306; 93458; 94640

== ENCOUNTER → 2019-01-02 | Outpatient (CLI) | payer BC ==
[~2019-01-02] MED LIST: ALPR0.254 PO; ASPI-983 PO; ATOR40TA PO; BUDE10.2 INH; CLOP75TA28 PO; FURO40TA4 PO; GUAI600T43 PO; METO-370 PO; PRED5TAB PO; SACU1TAB PO; SPIR25TA5 PO
== END ==
LOC: CARD 08:58
PROVIDERS: ATTEND Nurse Practitioner Family
DX: I34.0 Nonrheumatic mitral (valve) insufficiency (principal); I25.5 Ischemic cardiomyopathy; I51.7 Cardiomegaly
CPT/HCPCS: 93306

== ENCOUNTER → 2019-05-31 | Outpatient (CLI) | payer BC ==
[~2019-05-31] MED LIST changes: -METO-370 PO; +METO50TA7 PO; -SACU1TAB PO; +SACU1TAB2 PO
[2019-05-31 09:12] LABS: BASOPHILS % (AUTO) 1 % (0-10); EOSINOPHILS # (AUTO) 0.3 10^3/uL (0.0-0.3); EOSINOPHILS % (AUTO) 5 % (0-10); HEMATOCRIT 44 % (40-54); HEMOGLOBIN 14.8 G/DL (13.3-17.7); LYMPHOCYTES # (AUTO) 0.6 X 10^3 (1.0-4.0); LYMPHOCYTES % (AUTO) 11 % (12-44); MEAN CORPUSCULAR HEMOGLOBIN 29 PG (25-34); MEAN CORPUSCULAR HGB CONC 34 G/DL (32-36); MEAN CORPUSCULAR VOLUME 86 FL (80-99); MEAN PLATELET VOLUME 9.6 FL (7.4-10.4); MONOCYTES # (AUTO) 0.4 X 10^3 (0.0-1.0); MONOCYTES % (AUTO) 8 % (0-12); NEUTROPHILS # (AUTO) 4.4 X 10^3 (1.8-7.8); NEUTROPHILS % (AUTO) 76 % (42-75); PLATELET COUNT 255 10^3/uL (130-400); RED CELL DISTRIBUTION WIDTH 14.2 % (10.0-14.5); WHITE BLOOD COUNT 5.8 10^3/uL (4.3-11.0)
[2019-05-31 09:42] LABS: ALANINE AMINOTRANSFERASE 16 U/L (0-55); ALKALINE PHOSPHATASE 90 U/L (40-136); BILIRUBIN,TOTAL 0.8 MG/DL (0.1-1.0); BUN/CREATININE RATIO 17; CALCIUM 9.1 MG/DL (8.5-10.1); CARBON DIOXIDE 24 MMOL/L (21-32); CHLORIDE 109 MMOL/L (98-107); CHOLESTEROL 102 MG/DL (< 200); CREATININE SERUM 1.01 MG/DL (0.60-1.30); GFR ESTIMATED > 60; GLUCOSE 100 MG/DL (70-105); HDL CHOLESTEROL 29 MG/DL (40-60); POTASSIUM 4.2 MMOL/L (3.6-5.0); SODIUM 141 MMOL/L (135-145); TOTAL PROTEIN 6.1 GM/DL (6.4-8.2); TRIGLYCERIDES 73 MG/DL (<150); VLDL CHOLESTEROL 15 MG/DL (5-40)
== END ==
LOC: LAB 08:53
PROVIDERS: ATTEND Internal Medicine Cardiovascular Disease
DX: I25.10 Atherosclerotic heart disease of native coronary artery without angina pectoris (principal); I25.5 Ischemic cardiomyopathy
CPT/HCPCS: 36415; 80053; 80061; 83735; 85025

== ENCOUNTER → 2019-12-25 | Outpatient (CLI) | payer BC ==
[~2019-12-25] MED LIST changes: +ASPI-1238 PO; -ASPI-983 PO
[2019-12-25 09:06] LABS: ALANINE AMINOTRANSFERASE 20 U/L (0-55); ALBUMIN 4.3 GM/DL (3.2-4.5); ALKALINE PHOSPHATASE 94 U/L (40-136); BILIRUBIN,TOTAL 0.9 MG/DL (0.1-1.0); BUN/CREATININE RATIO 17; CALCIUM 9.5 MG/DL (8.5-10.1); CARBON DIOXIDE 26 MMOL/L (21-32); CHLORIDE 104 MMOL/L (98-107); CHOLESTEROL 126 MG/DL (< 200); CREATININE SERUM 1.15 MG/DL (0.60-1.30); GFR ESTIMATED > 60; GLUCOSE 104 MG/DL (70-105); HDL CHOLESTEROL 30 MG/DL (40-60); POTASSIUM 4.1 MMOL/L (3.6-5.0); SODIUM 140 MMOL/L (135-145); TOTAL PROTEIN 6.6 GM/DL (6.4-8.2); TRIGLYCERIDES 110 MG/DL (<150); VLDL CHOLESTEROL 22 MG/DL (5-40)
== END ==
LOC: CARD 09:00
PROVIDERS: ATTEND Nurse Practitioner Family
DX: I25.10 Atherosclerotic heart disease of native coronary artery without angina pectoris (principal); I25.5 Ischemic cardiomyopathy
CPT/HCPCS: 36415; 80053; 80061; 93306

== ENCOUNTER → 2021-05-13 | Outpatient (CLI) | payer BC ==
[~2021-05-13] MED LIST changes: +ALPR.25T PO; -ALPR0.254 PO; +CATHETER FLUSH 10 ML SYR IV PRN; +REGADENOSON 0.4 MG/5 ML SYR (LEXISCAN) IV ONE
[2021-05-13 09:14] VITALS: BP 150/73
--- NOTE | 2021-05-13 17:27 | STRESS TEST ---
DATE OF SERVICE: 05/13/2021 RESTING AND POST REGADENOSON TECHNETIUM-99M TETROFOSMIN SPECT CT IMAGING ORDERING PHYSICIAN: Sepideh Pascual APRN PRIMARY PHYSICIAN: Dr. Benitez. CLINICAL DIAGNOSIS: Ischemic cardiomyopathy. Baseline images were carried out after injection of 10.7 mCi of technetium-99m Tetrofosmin. This was followed by 0.4 mg regadenoson and 29.8 mCi of technetium-99m Tetrofosmin for stress imaging. The electrocardiogram showed sinus rhythm with left bundle branch block. The electrocardiogram did not change significantly with regadenoson infusion. The patient noted flushing of his face. Overall, he tolerated the procedure well. Review of images at rest and following stress does not indicate any significant perfusion defects consistent with significant myocardial ischemia or infarction. Gated images show normal global left ventricular systolic function with normal regional wall motion. Left ventricular ejection fraction is calculated to be 42%. Left ventricular end-diastolic volume is 74 mL. TID is absent (1.1). CONCLUSIONS: 1. No evidence of significant myocardial ischemia or infarction on this study. 2. Mild impairment of global left ventricular systolic function with a calculated ejection fraction of 42%. 3. No distinct regional wall motion abnormalities seen on this study. Job ID: [id number] DocumentID: [id number] Dictated Date: 05/13/2021 15:16:33 Hospice Care Consultant Date: 05/13/2021 17:27:19 Dictated By: BETTY HARPER MD, MA, FACP, FACC,
== END ==
LOC: CARD 08:00
PROVIDERS: ATTEND Nurse Practitioner Family
DX: I25.5 Ischemic cardiomyopathy (principal); I25.10 Atherosclerotic heart disease of native coronary artery without angina pectoris
CPT/HCPCS: 78452; 93017; A9502

== ENCOUNTER → 2021-05-16 | Outpatient (CLI) | payer BC ==
[~2021-05-16] MED LIST changes: -CATHETER FLUSH 10 ML SYR IV PRN; -REGADENOSON 0.4 MG/5 ML SYR (LEXISCAN) IV ONE
== END ==
LOC: CARD 08:30
PROVIDERS: ATTEND Nurse Practitioner Family
DX: I25.5 Ischemic cardiomyopathy (principal)
CPT/HCPCS: 93306

== ENCOUNTER → 2022-07-17 | Outpatient (CLI) | payer BC ==
[2022-07-17 09:15] LABS: POTASSIUM 4.3 MMOL/L (3.6-5.0)
[2022-07-17 09:16] LABS: ALBUMIN 4.1 GM/DL (3.2-4.5)
[2022-07-17 09:17] LABS: CALCIUM 8.9 MG/DL (8.5-10.1)
[2022-07-17 09:18] LABS: TOTAL PROTEIN 6.2 GM/DL (6.4-8.2)
[2022-07-17 09:22] LABS: CREATININE SERUM 0.96 MG/DL (0.60-1.30)
== END ==
LOC: LAB 08:45
PROVIDERS: ATTEND Nurse Practitioner Family
DX: I25.10 Atherosclerotic heart disease of native coronary artery without angina pectoris (principal); I10 Essential (primary) hypertension; I25.5 Ischemic cardiomyopathy; I49.1 Atrial premature depolarization; I49.3 Ventricular premature depolarization; I65.23 Occlusion and stenosis of bilateral carotid arteries; E78.2 Mixed hyperlipidemia
CPT/HCPCS: 36415; 80053; 80061

== ENCOUNTER → 2022-07-20 | Outpatient (CLI) | payer BC | LOC: CARD 11:00 | PROVIDERS: ATTEND Nurse Practitioner Family | DX: I34.0 Nonrheumatic mitral (valve) insufficiency (principal); I25.5 Ischemic cardiomyopathy | CPT/HCPCS: 93306 ==